=== PATIENT | female | born 1930 | race Caucasian/White ===

== ENCOUNTER 2016-03-15 10:39 | Inpatient (IN) ==
[2016-03-15] MEDS ORDERED: Naloxone 0.4 MG/ML INJ IVP PRN (13:25)
--- NOTE | 2016-03-15 14:15 | Internal Med History&Physical ---
<Madyson Joiner - Last Filed: 03/15/16 15:39> Date of Encounter: 03/15/16 Time of Encounter: 12:30 Assessment and Plan (1) Atrial fibrillation with RVR Current visit: Yes Status: Acute 1 patient presented with A. fib RVR heart rate 130s she does have history of paroxysmal atrial fibrillation and is on Xarelto as well as digoxin verapamil and metoprolol at home. Continuous cardiac monitoring Presently rate is 90-120- 2 patient has a listed allergy of Cardizem when questioned family states that her blood pressure drops were unsure of allergy. Will give patient IV metoprolol-will continue with verapamil will hold digoxin for now 3 we will continue with Xarelto 4 we will consult cardiology (2) Elevated troponin Current visit: Yes Status: Acute 1 patient's troponin on presentation was 0.06 with no chest pain suspect this is demand ischemia we will continue to cycle cardiac troponins 2 consult cardiology (3) Acute kidney injury superimposed on chronic kidney disease Current visit: Yes Status: Acute 1 has CKD stage III- as an creatinine is 1.63 appears baseline is around 1-1.2- suspect this is related to worsening CHF will continue to monitor creatinine 2 IV Lasix 3 monitoring of intake output daily weights 4 avoid nephrotoxins no NSAIDs (4) DM type 2 (diabetes mellitus, type 2) Current visit: No Status: Acute 1 patient is on insulin at home we will continue with basal as well as nutritional and sliding scale will monitor blood sugars before meals at bedtime maintain postprandial less than 180 Qualifiers: Diabetes mellitus complication status: with neurologic complications Diabetes mellitus complication detail: with unspecified neuropathy Diabetes mellitus intermodal dispatcher insulin use: with correction use Qualified Code(s): E11.40 - Type 2 diabetes mellitus with diabetic neuropathy, unspecified; Z79.4 - half-way (current) use of insulin (5) COPD (chronic obstructive pulmonary disease) Current visit: No Status: Chronic 1 present COPD stable no wheezing noted we will continue with oxygen maintain SPO2 greater than 92% bronchodilators as needed Qualifiers: COPD type: unspecified COPD Qualified Code(s): J44.9 - Chronic obstructive pulmonary disease, unspecified (6) Diastolic heart failure Current visit: No Status: Chronic 1 patient experiencing increasing weakness BMP was elevated chest x-ray indicative of heart failure-we will give IV Lasix 2 place on low sodium diet 3 monitor intake and output daily weights 4 maintain heart rate less than 90/maintain systolic less than 140-continue with beta fabiola and verapamil Qualifiers: Heart failure chronicity: acute on chronic Qualified Code(s): I50.33 - Acute on chronic diastolic (congestive) heart failure (7) Hypertension Current visit: No Status: Chronic 1 patient presented with elevated blood pressure systolic over 200 diastolic 100. We will continue with Lasix metoprolol and verapamil goal is to maintain systolic less than 140 Qualifiers: Hypertension type: essential hypertension Qualified Code(s): I10 - Essential (primary) hypertension Internal Medicine - H&P: HPI Chief complaint: Weakness/fall Admitted From: Hospital to Hospital Transfer Plans for Post Hospital Care: Home History of present illness: Ms. Méndez is a 86 year old female past medical history of paroxysmal atrial fibrillation diastolic heart failure COPD oxygen dependent hypertension diabetes. Patient lives alone normally takes care of herself ambulating with a walker however over the past week she has experiencing increasing weakness unable to ambulate using a wheelchair as requiring family members to stay with her and help her with medications and ADLs. Family members have noticed medications that have been dropped on the floor patient attempting to inject insulin into her house coat, and requiring more assistance with transfers. This a.m. the patient got up to use the bathroom and she fell from standing. She denies any dizziness chest pain palpitations or loss of consciousness. She did complain of lower back pain She was brought to the [place] ER for evaluation. Upon arrival was noted patient was in A. fib RVR with a heart rate of 1:30. Chest x-ray was indicative of congestive heart failure BNP was elevated at 1027 troponin was 0.06 patient did have elevated blood pressure on presentation to 201/125. CT of lumbar and pelvis were negative for fracture patient was given Bumex in the ER and was transferred to [facility] for further workup and evaluation. Upon assessment patient denies any chest pain or shortness of breath at this time. She is presently in atrial fibrillation on the monitor with a rate between 90-120. Oxygen saturation 94-97% on [address] Perez did discuss code status with shasha who is at bedside. Family/patient requesting DNR CCA DNI-I reviewed and confirmed request I reviewed the case with Dr perez who agrees wit hplan Past Med Surg Social Fam HX - Past Medical History Medical history: arthritis, atrial fibrillation, CHF, COPD, CVA Psychiatric history: anxiety - Past Surgical History Surgical History: cataract, hysterectomy, orthopedic, other, other - Social History Smoking Status: Former smoker Smokeless Tobacco Status: No Alcohol use: none Drug use: none - Family History Mother Living Status: Hx Family Cardiac Disorders: Yes Father Living Status: Hx Family Cancer: Yes Brother Hx Family Cardiac Disorders: Yes (CAD, has PPM) Sister Hx Family Cardiac Disorders: Yes (CAD, has PPM) Daughter Living Status: Hx Family Cancer: Yes Internal Medicine - H&P: Meds B2/Vits A,C,E/Lut/Zeaxanth/Min [Icaps Tablet] 1 each PO HS 03/27/15 [History] Cholecalciferol (Vitamin D3) [Vitamin D3] 5,000 unit PO HS 03/27/15 [History] ClonazePAM [Klonopin] 0.5 mg PO HS 03/27/15 [History] Docusate [Colace] 100 mg PO HS 03/27/15 [History] Furosemide [Lasix] 80 mg PO QAM 03/27/15 [History] Insulin NPH Hum/Reg Insulin Hm [Novolin 70-30 100 Unit/ml Vial] 35 unit SQ BID 03/27/15 [History] Losartan [Cozaar] 50 mg PO HS 03/27/15 [History] [place]-3/Dha/Epa/Fish Oil [[place] 3 500 Softgel] 2 cap PO QAM 03/27/15 [History] Omeprazole [PriLOSEC] 40 mg PO QAM 03/27/15 [History] Potassium Chloride [K-Tab ER] 20 meq PO BID 03/27/15 [History] Albuterol Neb [Proventil Neb] 2.5 mg IH Q6H PRN 11/13/15 [History] Albuterol Sulfate [Proair Hfa] 2 puff IH Q4H PRN 11/13/15 [History] Denosumab [Prolia (For Outpatient Infusion)] 60 mg SQ [id number] 11/13/15 [History ] Rivaroxaban [Xarelto] 10 mg PO QAM 11/13/15 [History] Tiotropium [Spiriva] 18 mcg IH DAILY@0700 #30 inh 02/24/16 [Rx] Verapamil ER (24 HR) [Calan SR] 240 mg PO DAILY #30 tablet.er 02/24/16 [Rx] Budesonide/Formoterol 160/4.5 [Symbicort 160/4.5] 2 puff IH BID 03/15/16 [ History] Digoxin [Lanoxin] 0.125 mg PO DAILY 03/15/16 [History] Metoprolol [Lopressor] 100 mg PO BID 03/15/16 [History] Venlafaxine [Effexor] 75 mg PO DAILY 03/15/16 [History] Allergies aminophylline Allergy (Verified 03/15/16 14:43) Anaphylaxis bacitracin Allergy (Verified 03/15/16 14:43) Anaphylaxis Calcium Channel Blocking Agents-Dih Allergy (Verified 03/15/16 14:43) Anaphylaxis cephalexin Allergy (Verified 03/15/16 14:43) Anaphylaxis Cephalosporins Allergy (Verified 03/15/16 14:43) Anaphylaxis diltiazem Allergy (Verified 03/15/16 14:43) Anaphylaxis Erythromycin Base Allergy (Verified 03/15/16 14:43) Anaphylaxis Macrolide Antibiotics Allergy (Verified 03/15/16 14:43) Anaphylaxis menthol Allergy (Verified 03/15/16 14:43) Anaphylaxis meperidine Allergy (Verified 03/15/16 14:43) Anaphylaxis methyl salicylate Allergy (Verified 03/15/16 14:43) Anaphylaxis morphine Allergy (Verified 03/15/16 14:43) Anaphylaxis nifedipine Allergy (Verified 03/15/16 14:43) Anaphylaxis Penicillins Allergy (Verified 03/15/16 14:43) Anaphylaxis polymyxin B Allergy (Verified 03/15/16 14:43) Anaphylaxis simvastatin Allergy (Verified 03/15/16 14:43) Anaphylaxis Vrazeou-Fqo-Lid Reductase Inhibitor [HMG-Coa Reductase Inhibitors] Allergy ( Verified 03/15/16 14:43) Anaphylaxis Sulfa (Sulfonamide Antibiotics) Allergy (Verified 03/15/16 14:43) Anaphylaxis theophylline Allergy (Verified 03/15/16 14:43) Anaphylaxis Iodinated Contrast Media - Oral and [Iodinated Contrast Media - IV Dye] Adverse Reaction (Verified 03/15/16 14:43) Anaphylaxis All Systems PM: A 10-system review of systems was performed and is negative for pertinent findings except as documented above in the HPI. - Constitutional Constitutional: fatigue, falls, lethargy, weakness - Cardiovascular Cardiovascular ROS IM: edema - Respiratory Respiratory: dyspnea - Gastrointestinal Gastrointestinal: no abdominal pain, no diarrhea, no hematemesis, no hematochezia, no melena, no nausea, no vomiting - Genitourinary Genitourinary: no change in urinary stream, no dysuria, no flank pain, no hematuria - Musculoskeletal Musculoskeletal ROS IM: no numbness, no tingling - Neurological Neurological ROS: weakness - Constitutional Vitals: Temp Pulse Resp BP Pulse Ox 98.1 F 115 20 175/75 93 L 03/15/16 12:05 03/15/16 12:05 03/15/16 12:05 03/15/16 12:51 03/15/16 12:05 General appearance: Present: A&O X 3, obese - Head Head exam: Present: atraumatic, normocephalic - Respiratory Respiratory exam: Absent: accessory muscle use, rales, rhonchi, wheezes Additional comments: Crackles in bases bilaterally - Cardiovascular Cardiovascular exam: Present: irregular rhythm, +S1, +S2. Absent: diastolic murmur, gallop, rubs, systolic murmur - GI/Abdominal GI/Abdominal exam: Present: normal bowel sounds, soft, no peritoneal signs. Absent: distended, tenderness - Extremities Exam Extremities exam: Present: warm, radial pulses palpable and symetrical. Absent : calf tenderness, cyanotic, pedal edema - Neurological Exam Neurological exam: Present: CN II-XII intact, oriented X3, no focal deficits. Absent: pronater drift, facial droop, speech deficit - Skin Skin exam: Present: dry, intact Internal Med - H&P Results - Labs Labs: Labs as of 03/15/16 from [facility]- CBC- WBC 20 hemoglobin 11.5 hematocrit 37.8 platelets 258 Chem-7- sodium 139, potassium 3.9 chloride 101, bicarbonate 25 BUN 19, creatinine 1.63, glucose 177 Troponin 0.06 lactate 1 - EKG Data EKG comments: 03/15/16 15:28 EKG reviewed with due to atrial fibrillation with nonspecific ST changes. - Diagnostic Studies Chest x-ray Additional comments: Per radiology read findings compatible with congestive heart failure to include bilateral pleural effusion and likely associated bibasilar atelectasis. Pleural effusions and atelectasis appear improved on the right and worse on the left from prior exam 02/20/2016 <Deep Perez - Last Filed: 03/15/16 17:59> Date of Encounter: 03/15/16 Internal Medicine - H&P: HPI History of present illness: Ms. Méndez is a 86 year old female All Systems PM: A 10-system review of systems was performed and is negative for pertinent findings except as documented above in the HPI. - Constitutional Vitals: Temp Pulse Resp BP Pulse Ox 98.6 F 80 18 165/80 93 L 03/15/16 16:24 03/15/16 16:24 03/15/16 16:24 03/15/16 16:24 03/15/16 12:05 Internal Med - H&P Results - Labs Labs: Cardiac Enzymes 03/15/16 Range/Units 14:45 Troponin I 0.13 H* (0-0.03) ng/mL - Attending Attestation I examined this patient and my medical decision-making was reviewed with the DIAMOND EXPERT/PA/Advanced Practice Nurse/Resident Physician. I agree with the documented findings, disposition and treatment plan as described except to the extent set forth below. Patient was brought to the hospital status post fall with a history of 5 days of this slowly worsening generalized weakness. History is obtained from the patient's granddaughter at the bedside. She was initially brought to [facility] where she was found to be in A. fib with RVR. She was given Bumex and transferred to our hospital. Currently the patient reports mild back pain. On exam heart irregularly irregular S1 and S2 with no murmurs lungs with diminished breath sounds extremities with trace pitting edema EKG reveals atrial fibrillation with rapid ventricular response with diffuse ST depressions in V4 to V6 and leads 23 and aVF. Plan: Continue with IV Lasix. Hold diltiazem to 2 listed allergy. Continue with verapamil. Start IV metoprolol. Consult cardiology. I have had a long discussion regarding CODE STATUS and the patient herself as well as her granddaughter agree with the current status of DNR CCA and DNI.
[2016-03-15] MEDS ORDERED: D5% in Water 1,000 ML IV PRN (14:57)
[2016-03-15] MEDS ORDERED: Albuterol 2.5 MG/3 ML NEBULIZER IH PRN (14:57)
[2016-03-15] MEDS ORDERED: Dextrose Gel 15 GM PO PRN ×2 (14:57)
[2016-03-15] MEDS ORDERED: *HR* Dextrose 50 % in Water (Syg) 50 ML SYRINGE IVP PRN (14:57)
[2016-03-15 15:14] LABS: INR 1.2
[2016-03-15 15:16] LABS: Activated Partial Thrombo Time 25.5 Seconds (26.0-36.0)
[2016-03-15] MEDS: *HR* Metoprolol 5 MG/5 ML VIAL IVP SCH ×2 (16:31→17:11)
[2016-03-15] MEDS: *HR* Rivaroxaban 15 MG TABLET PO SCH (16:31)
[2016-03-15] MEDS: Insulin LISPRO 300 UNITS/3 ML VIAL SQ SCH ×3 (16:32→20:26)
[2016-03-15] MEDS: Furosemide 40 MG/4 ML VIAL IVP SCH ×2 (17:39→19:37)
[2016-03-15] MEDS ORDERED: *HR* Metoprolol 5 MG/5 ML VIAL IVP SCH (18:00)
[2016-03-15] MEDS: Insulin DETEMIR 100 UNIT/ML X5UNITS SQ SCH (20:26)
[2016-03-15] MEDS ORDERED: Furosemide 40 MG/4 ML VIAL IVP SCH (21:00)
[2016-03-15] MEDS ORDERED: Ondansetron 4 MG/2 ML VIAL IVP PRN (21:00)
[2016-03-15] MEDS ORDERED: traMADol 50 MG TABLET PO ONE (21:16)
[2016-03-16] MEDS: *HR* Metoprolol 5 MG/5 ML VIAL IVP SCH ×3 (00:58→12:03)
[2016-03-16 05:44] LABS: Mean Corpuscular Volume 83.2 fL (83.0-100.0)
[2016-03-16 05:45] LABS: Basophils # 0.1 K/mcL (0.0-0.2); Basophils % 0.4 %; Eosinophils # 0.1 K/mcL (0.0-0.6); Eosinophils % 0.2 %; Hematocrit 54.3 % (35.3-44.9); Hemoglobin 16.3 g/dL (11.5-15.4); Immature Granulocytes % 2.2 % (0-4); Lymphocytes # 3.5 K/mcL (0.6-4.6); Lymphocytes % 10.3 %; Mean Platelet Volume 12.5 fL (9.4-12.4); Monocytes # 1.7 K/mcL (0.0-1.3); Monocytes % 5.2 %; Nucleated Red Blood Cells 0.1 /100 WBC (0); Platelet Count 345 K/mcL (140-400); Red Blood Count 6.53 M/mcL (3.82-4.97); Red Cell Distribution Width 17.2 % (11.5-14.5); Segmented Neutrophils % 81.7 %
[2016-03-16 05:53] LABS: Neutrophils # 27.4 K/mcL (1.6-8.9)
[2016-03-16 05:58] LABS: Potassium 4.9 mEq/L (3.5-4.5)
[2016-03-16 06:20] LABS: Thyroid Stimulating Hormone 1.107 mcIU/mL (0.350-4.840)
[2016-03-16 06:27] LABS: Platelet Estimate Normal (Normal); Reactive Lymphocytes Present (Not Present)
[2016-03-16 06:28] LABS: Hypersegmented Neutrophils Present (Not Present); Large Platelets Present (Not Present)
[2016-03-16] MEDS: Furosemide 40 MG/4 ML VIAL IVP SCH (08:19)
[2016-03-16] MEDS: Insulin LISPRO 300 UNITS/3 ML VIAL SQ SCH ×7 (08:20→22:22)
[2016-03-16] MEDS ORDERED: Verapamil ER (24 HR) 240 MG TABLET.ER PO SCH ×2 (09:00→15:06)
--- NOTE | 2016-03-16 09:36 | Cardiology Consult Note ---
<Marianela Hicks Paloma - Last Filed: 03/16/16 10:31> Date of Encounter: 03/16/16 Time of Encounter: 09:00 Assessment and Plan (1) Atrial fibrillation with RVR Current Visit: Yes Status: Acute Hx of PAF, previously on cardizem and betablocker as outpatient; anticoagulated on Xarelto. Questionable allergy to Cardizem, however per outpatient Cardio note, she was taking. Telemetry review: avg XC=782 afib; HR 120's-140's upon exam. Recommend initiation of cardizem gtt for rate control; suspect difficulty controlling rate in the setting of acute infection--WBC 33.5 Appears volume overload upon exam, will give IV lasix now. On Xarelto--renal adjusted dose; may need to discuss long-term AC due to falls. (2) Elevated troponin Current Visit: Yes Status: Acute Mild troponin elevation 0.06, 0.13, 0.12 in the setting of suspected PNA and atrial fibrillation with RVR; likely secondary to demand ischemia. Severe HTN upon admission, SBP remains >170s upon exam. (3) JAZZMINE (acute kidney injury) Current Visit: Yes Status: Acute SCr 2.2 this AM; 1.63 upon presentation to [facility] ED. Baseline SCr 1-1.1. Avoid nephrotoxins, consider Nephrology consult if renal function continues to decline; defer further mgmt to primary service. Discussion w patient/family: The assessment and plan as outlined above was discussed with the patient and/or family members who expressed understanding and agreement. All questions were answered. Thank you for involving us in the care of your patient. Please call with any questions. The patient will be discussed and reviewed with Dr. Mendes; changes to be made accordingly. History of Present Illness Consult date: 03/16/16 Requesting physician: Madyson Joiner Consult reason: afib RVR Chief complaint: AMS, confusion History of present illness: Ms. Méndez is a 86 year old female with PMH significant for PAF (Xarelto), CVA x2, DMII, HLD, HTN, and COPD (home oxygen) who presented to the ED overnight with reported hypoxia and increased confusion per family report. Upon exam, patient is unable to provide details regarding HPI--discussed with daughter at beside. Daughter reports patient has "not been herself" over the past week, reports episodes of confusion, chills and worsening cough. Symptoms escalated on Wednesday, patient fell at home and SPO2 was in the 70's despite utilization of home oxygen therapy. She was taken to [facility] ED and transferred to [facility] for further treatment. Daughter reports recent transition of care to Hospice close to a week ago. Seen by Optimization Consultant last Wednesday who recommended thoracentesis; however patient declined. Recent CV testing includes: TTE 03/28/15: EF 65%, mild concentric LVH, severe LVDD, severely dilated left atrium, mild MR, moderate PH. Past Med Surg Social Fam HX - Past Medical History Medical history: arthritis, atrial fibrillation, CHF (chronic, diastolic), COPD , CVA Psychiatric history: anxiety - Past Surgical History Surgical History: cataract, hysterectomy, orthopedic, other - Social History Smoking Status: Former smoker Smokeless Tobacco Status: No Alcohol use: none Drug use: none - Family History Mother Living Status: Hx Family Cardiac Disorders: Yes Father Living Status: Hx Family Cancer: Yes Brother Hx Family Cardiac Disorders: Yes (CAD, has PPM) Sister Hx Family Cardiac Disorders: Yes (CAD, has PPM) Daughter Living Status: Hx Family Cancer: Yes Medications and Allergies B2/Vits A,C,E/Lut/Zeaxanth/Min [Icaps Tablet] 1 each PO HS 03/27/15 [History] Cholecalciferol (Vitamin D3) [Vitamin D3] 5,000 unit PO HS 03/27/15 [History] ClonazePAM [Klonopin] 0.5 mg PO HS 03/27/15 [History] Docusate [Colace] 100 mg PO HS 03/27/15 [History] Furosemide [Lasix] 80 mg PO QAM 03/27/15 [History] Insulin NPH Hum/Reg Insulin Hm [Novolin 70-30 100 Unit/ml Vial] 35 unit SQ BID 03/27/15 [History] Losartan [Cozaar] 50 mg PO HS 03/27/15 [History] [place]-3/Dha/Epa/Fish Oil [[place] 3 500 Softgel] 2 cap PO QAM 03/27/15 [History] Omeprazole [PriLOSEC] 40 mg PO QAM 03/27/15 [History] Potassium Chloride [K-Tab ER] 20 meq PO BID 03/27/15 [History] Albuterol Neb [Proventil Neb] 2.5 mg IH Q6H PRN 11/13/15 [History] Albuterol Sulfate [Proair Hfa] 2 puff IH Q4H PRN 11/13/15 [History] Denosumab [Prolia (For Outpatient Infusion)] 60 mg SQ [id number] 11/13/15 [History ] Rivaroxaban [Xarelto] 10 mg PO QAM 11/13/15 [History] Tiotropium [Spiriva] 18 mcg IH DAILY@0700 #30 inh 02/24/16 [Rx] Verapamil ER (24 HR) [Calan SR] 240 mg PO DAILY #30 tablet.er 02/24/16 [Rx] Budesonide/Formoterol 160/4.5 [Symbicort 160/4.5] 2 puff IH BID 03/15/16 [ History] Digoxin [Lanoxin] 0.125 mg PO DAILY 03/15/16 [History] Metoprolol [Lopressor] 100 mg PO BID 03/15/16 [History] Venlafaxine [Effexor] 75 mg PO DAILY 03/15/16 [History] Allergies aminophylline Allergy (Verified 03/15/16 14:43) Anaphylaxis bacitracin Allergy (Verified 03/15/16 14:43) Anaphylaxis Calcium Channel Blocking Agents-Dih Allergy (Verified 03/15/16 14:43) Anaphylaxis cephalexin Allergy (Verified 03/15/16 14:43) Anaphylaxis Cephalosporins Allergy (Verified 03/15/16 14:43) Anaphylaxis diltiazem Allergy (Verified 03/15/16 14:43) Anaphylaxis Erythromycin Base Allergy (Verified 03/15/16 14:43) Anaphylaxis Macrolide Antibiotics Allergy (Verified 03/15/16 14:43) Anaphylaxis menthol Allergy (Verified 03/15/16 14:43) Anaphylaxis meperidine Allergy (Verified 03/15/16 14:43) Anaphylaxis methyl salicylate Allergy (Verified 03/15/16 14:43) Anaphylaxis morphine Allergy (Verified 03/15/16 14:43) Anaphylaxis nifedipine Allergy (Verified 03/15/16 14:43) Anaphylaxis Penicillins Allergy (Verified 03/15/16 14:43) Anaphylaxis polymyxin B Allergy (Verified 03/15/16 14:43) Anaphylaxis simvastatin Allergy (Verified 03/15/16 14:43) Anaphylaxis Ginubig-Fjb-Syq Reductase Inhibitor [HMG-Coa Reductase Inhibitors] Allergy ( Verified 03/15/16 14:43) Anaphylaxis Sulfa (Sulfonamide Antibiotics) Allergy (Verified 03/15/16 14:43) Anaphylaxis theophylline Allergy (Verified 03/15/16 14:43) Anaphylaxis Iodinated Contrast Media - Oral and [Iodinated Contrast Media - IV Dye] Adverse Reaction (Verified 03/15/16 14:43) Anaphylaxis All Systems Review: A 10-system review of systems was performed and is negative for pertinent findings except as documented above in the HPI. - Cardiovascular Cardiovascular: as per HPI Physical Examination Vital Signs, Last 4 Hours Temp Pulse Resp BP Pulse Ox 03/16/16 07:42 97.9 F 03/16/16 07:18 97.8 F 130 16 168/84 94 L General: Conversant HEENT: Atraumatic, Normocephaly Cardiac: Other (irregularity irregular) Lungs: Other (Decreased bibasilar) Neuro: Alert and responsive (to self, location) Abdomen: Soft (tender x4 quadrants) Extremities: No Edema, Other (Toes purple/blue; bilateral feet cool to touch) Results 03/16/16 05:11 03/16/16 05:11 Lab Results 03/15/16 03/15/16 03/15/16 14:45 14:45 20:32 WBC Hgb Hct Plt Count INR 1.2 APTT 25.5 L Sodium Potassium Chloride Carbon Dioxide BUN Creatinine Glucose Calcium Troponin I 0.13 H* 0.12 H* TSH 03/16/16 03/16/16 05:11 05:11 WBC 33.5 H* D Hgb 16.3 H D Hct 54.3 H Plt Count 345 INR APTT Sodium 134 L Potassium 4.9 H D Chloride 102 Carbon Dioxide 16 L BUN 33 H D Creatinine 2.22 H Glucose 310 H Calcium 10.0 Troponin I TSH 1.107 Active Medications Acetaminophen (Tylenol) 650 mg PO Q6HR PRN PRN Reason: Pain Stop: 09/14/16 21:00 Albuterol Sulfate (Proventil Neb) 2.5 mg IH Q2H PRN PRN Reason: Shortness Of Breath/Wheezing Stop: 09/14/16 14:58 Dextrose/Water (Dextrose 50% (Syg)) 25 ml IVP AD PRN PRN Reason: Hypoglycemia Stop: 09/14/16 14:58 Dextrose (Dextrose 5%) 1,000 mls @ 100 mls/hr IV CONT PRN PRN Reason: HYPOGLYCEMIA Stop: 09/14/16 14:58 Meropenem 500 mg/ Sodium (Chloride) 100 mls @ 200 mls/hr IVPB Q8HR JENNIFER Stop: 09/15/16 16:01 Vancomycin HCl 1,000 mg/ (Dextrose) 250 mls @ 167 mls/hr IVPB RPHPROT JENNIFER PRN Reason: Protocol Stop: 09/15/16 10:01 Diltiazem HCl 125 mg/ Dextrose 125 mls @ 5 mls/hr IVC .Q24H JENNIFER PRN Reason: 5 MG/HR Stop: 09/15/16 09:46 Insulin Detemir (Levemir) 10 unit 0.15 unit/kg (10 unit) SQ HS [facility] Stop: 09/14/16 21:01 Last Admin: 03/15/16 20:26 Dose: 10 unit Insulin Human Lispro (Humalog) 4 units 0.05 units/kg (4 units) SQ TIDWM [facility] Stop: 09/14/16 17:01 Last Admin: 03/16/16 08:20 Dose: 4 units Insulin Human Lispro (Humalog) 0 units SQ HS JENNIFER PRN Reason: Protocol Stop: 09/14/16 21:01 Last Admin: 03/15/16 20:26 Dose: Not Given Insulin Human Lispro (Humalog) 0 units SQ TIDAC [facility] PRN Reason: Protocol Stop: 09/14/16 16:31 Last Admin: 03/16/16 08:21 Dose: 8 units Metoprolol Tartrate (Lopressor) 5 mg IVP Q6HR [facility] Stop: 09/14/16 14:52 Last Admin: 03/16/16 05:28 Dose: 5 mg Naloxone HCl (Narcan) 0.4 mg IVP Q2MIN PRN PRN Reason: Opioid Reversal Stop: 09/14/16 13:26 Ondansetron HCl (Zofran) 4 mg IVP Q6HR PRN; Protocol PRN Reason: Nausea Stop: 09/14/16 21:01 Last Admin: 03/15/16 21:52 Dose: 4 mg Rivaroxaban (Xarelto) 15 mg PO 1700 [facility] Stop: 09/14/16 17:01 Last Admin: 03/15/16 16:31 Dose: 15 mg Venlafaxine HCl (Effexor) 75 mg PO DAILY [facility]ENN[facility] Stop: 09/15/16 09:01 Last Admin: 03/16/16 08:18 Dose: 75 mg Verapamil HCl (Calan Sr) 240 mg PO DAILY [facility]ENN[facility]ER PRN Reason: Protocol Stop: 09/15/16 15:07 Impressions Chest X-Ray 03/16/16 06:14 IMPRESSION: Persistent bilateral interstitial infiltrates with small pleural effusions right greater than left questioning pulmonary edema versus pneumonia. D/ / 03/16/2016 06:59:41 Puneet Guajardo MD / [facility] - Imaging and Cardiology Echo: report reviewed Other Results: Telemetry review: avg [id number] atrial fibrillation - EKG Interpretation EKG results cardiology: personally reviewed Consult Discharge Plan - Plan Referrals: Kael Chanel DO [Primary Care Provider] - <Julio César Mendes - Last Filed: 03/16/16 11:38> Date of Encounter: 03/16/16 Assessment and Plan Discussion w patient/family: The assessment and plan as outlined above was discussed with the patient and/or family members who expressed understanding and agreement. All questions were answered. Thank you for involving us in the care of your patient. Please call with any questions. History of Present Illness History of present illness: Ms. Méndez is a 86 year old female All Systems Review: A 10-system review of systems was performed and is negative for pertinent findings except as documented above in the HPI. Physical Examination Vital Signs, Last 4 Hours Temp BP 03/16/16 11:00 184/76 03/16/16 07:42 97.9 F Results 03/16/16 05:11 03/16/16 05:11 Lab Results 03/15/16 03/15/16 03/15/16 14:45 14:45 20:32 WBC Hgb Hct Plt Count INR 1.2 APTT 25.5 L Sodium Potassium Chloride Carbon Dioxide BUN Creatinine Glucose Calcium Troponin I 0.13 H* 0.12 H* TSH 03/16/16 03/16/16 05:11 05:11 WBC 33.5 H* D Hgb 16.3 H D Hct 54.3 H Plt Count 345 INR APTT Sodium 134 L Potassium 4.9 H D Chloride 102 Carbon Dioxide 16 L BUN 33 H D Creatinine 2.22 H Glucose 310 H Calcium 10.0 Troponin I TSH 1.107 - Attending Attestation Patient Seen and examined less sob Toes appear to be cyanotic no cp , pnd vital signs stable lungs; occ crackles heart : irregular plan: a/w plan from PRODUCTION PLANNER will try and control HR consider in patient Hospice consult consider Palliative care consult For this encounter, I have reviewed the PRODUCTION PLANNER or PA documentation, treatment plan, and medical decision making; and I have had face to face time with this patient.
[2016-03-16] MEDS ORDERED: Vancomycin 1,000 MG in D5% in Water 250 ML IVPB SCH (10:00)
[2016-03-16] MEDS: Meropenem 500 MG in 0.9 % Sodium Chloride Mini Bag 100 ML IVPB SCH ×2 (10:33→22:20)
[2016-03-16] MEDS: Vancomycin 1,000 MG in D5% in Water 250 ML IVPB ONE ×2 (10:35→12:06)
[2016-03-16 12:51] LABS: BUN/Creatinine Ratio 15 (6-26); Blood Urea Nitrogen 44 mg/dL (7-20); eGFR For African Americans 19 (> 60); eGFR For Non-African Americans 16 (> 60)
[2016-03-16 13:35] LABS: Digoxin 2.2 ng/mL (0.8-2.0)
[2016-03-16] MEDS ORDERED: cloNIDine HCl 0.1 MG TABLET PO ONE (15:14)
[2016-03-16] MEDS: *HR* Rivaroxaban 15 MG TABLET PO SCH (16:29)
--- NOTE | 2016-03-16 16:40 | Internal Med Progress Note ---
<Roberto Schultz - Last Filed: 03/16/16 16:54> Date of Encounter: 03/16/16 Time of Encounter: 16:38 - Assessment and plan (1) Sepsis Current Visit: Yes Status: Acute Assessment and plan: SIRS criteria met with Leukocytosis ( with neutrophilia) and tachycardia. Possible sources would include HCAP pneumonia and possible intraabdominal source. Intraabdominal source less likely given CT findings. Severe sepsis given lactic acidosis and organ dysfunction (JAZZMINE) Currently hemodynamically stable. She is actually hypertensive. Blood cultures ordered. started on vancomycin and Meropenem ( patient with multiple allergies). She dose appear clinically ill. and has multiple comorbidities. We will need to watch her carefully as she could clinically decline. Will follow up with serial exams through the day and sign out to the night team as well. (2) Atrial fibrillation with RVR Current Visit: Yes Status: Acute Assessment and plan: will start on cardizem gtt. Patient has many allergies. they were all entered as an anyphyllactic reaction. However patient previously on cardizemand family states it was listed as allergy as she had an episode of hypertension with it in the past. Cardiology consulted. She is on Xarelto ( may need to be adjusted if renal function dose not improve. (3) Elevated troponin Current Visit: Yes Status: Acute Assessment and plan: weston barron. In the setting of JAZZMINE. Trending down Appreciate Cardiologies recommendation. (4) Leukocytosis Current Visit: Yes Status: Acute Assessment and plan: Likely from infection. Possibly pneumonia. However chronically elevated. CLL? or other blood disorder? Will get a peripheral smear. (5) Raynauds disease Current Visit: Yes Status: Acute Assessment and plan: Pants toes were blue on exam. Improved some with warming. However pulses difficult to palpate. mildly elevated lactic acid. May also consider blue toe syndrome as she appears to have significant atherosclerosis. However I think that most likely this is raynauds given the improvement with warmth. Will get arterial US to evaluate flow. continue with serial exams. (6) COPD (chronic obstructive pulmonary disease) Current Visit: Yes Status: Acute Assessment and plan: currently not in exacerbation Continue home medications. On home dose of O2 -3L NC (7) Lung nodule Current Visit: Yes Status: Acute Assessment and plan: spiculated 1.1 CM lung nodule in RLL. However patient reportedly refused biopsy and thoracentesis per families account. (8) Pleural effusion Current Visit: Yes Status: Acute Assessment and plan: as stated above. will offer thoracentesis again should she become more symptomatic. (9) Pelvic fluid collection Current Visit: Yes Status: Acute Assessment and plan: Etiology unclear at this time. No peritoneal signs on exam. No acute findings on CT of the pelvis. continue serial exams. (10) Atherosclerosis Current Visit: Yes Status: Acute Assessment and plan: add aspirine. she has history of Statin allergy . (11) DVT prophylaxis Current Visit: Yes Status: Acute Assessment and plan: on Xarelto - Subjective Interval history: Patient this AM has some confusions. She states that it is 1969. She is orientated to person and self. She denies any pain or discomfort. She denies any chest pain or discomfort. She denies any increased dyspnea from baseline. She has no further complaints at this time. - Constitutional Vitals: Temp Pulse Resp BP Pulse Ox 98.7 F 115 14 180/86 97 03/16/16 15:19 03/16/16 15:19 03/16/16 15:19 03/16/16 15:19 03/16/16 15:19 General appearance: Present: A&O X 2, no acute distress, obese - Head Head exam: Present: atraumatic, normocephalic - Eye Eye exam: Present: PERRL, conjuntiva pink, sclera anicteric Pupils: Present: PERRL - Neck Neck exam general surgery: Present: supple, trachea midline. Absent: lymphadenopathy - Respiratory Respiratory exam: Present: CTAB. Absent: accessory muscle use, rales, rhonchi, wheezes Additional comments: diminished at bases. - Cardiovascular Cardiovascular exam: Present: irregular rhythm, +S1, +S2, tachycardia. Absent: diastolic murmur, gallop, rubs, systolic murmur - GI/Abdominal GI/Abdominal exam: Present: normal bowel sounds, soft, tenderness (LLQ ), no peritoneal signs. Absent: distended - Extremities Exam Extremities exam: Present: cyanotic (toes/ raynauds). Absent: calf tenderness, mottling, pedal edema - Skin Skin exam: Present: dry, intact Internal Medicine: Result - Labs CBC & Chem 7: 03/16/16 05:11 03/16/16 12:31 Labs: Short CBC 03/16/16 Range/Units 05:11 WBC 33.5 H* D (4.3-11.1) K/mcL Hgb 16.3 H D (11.5-15.4) g/dL Hct 54.3 H (35.3-44.9) % Plt Count 345 (140-400) K/mcL Neutrophils # 27.4 H (1.6-8.9) K/mcL BMP 03/16/16 03/16/16 05:11 12:31 Sodium 134 L Potassium 4.9 H D Chloride 102 Carbon Dioxide 16 L BUN 33 H D 44 H D Creatinine 2.22 H 2.87 H Glucose 310 H Calcium 10.0 Cardiac Enzymes 03/15/16 Range/Units 20:32 Troponin I 0.12 H* (0-0.03) ng/mL - ABG Interpretation ABG results: PT/INR, D-dimer PT 13.0 Seconds (9.4-12.1) H 03/15/16 14:45 - Impressions Impressions Chest X-Ray 03/16/16 06:14 IMPRESSION: Persistent bilateral interstitial infiltrates with small pleural effusions right greater than left questioning pulmonary edema versus pneumonia. D/ / 03/16/2016 06:59:41 Puneet Guajardo MD / codey Interpreting Provider: Puneet Guajardo MD Abdomen/Pelvis CT 03/16/16 10:16 IMPRESSION: 1. Wall thickening of the gastric antrum may reflect gastritis or peptic ulcer disease. 2. Small volume ascites in the abdomen and pelvis. 3. No abdominal aortic aneurysm. D/ / 03/16/2016 11:27:05 Dori Ma MD / codey Interpreting Provider: Dori Ma MD - VTE Documentation of Mechanical Device: Graduated compression elastic hosiery Consult Discharge Plan - Plan Referrals: Kael Chanel DO [Primary Care Provider] - 03/23/16 11:30 am <Sergey Xiao - Last Filed: 03/16/16 19:01> Date of Encounter: 03/16/16 - Assessment and plan (1) Sepsis Current Visit: Yes Status: Acute Qualifiers: Sepsis type: sepsis due to unspecified organism Qualified Code(s): A41.9 - Sepsis, unspecified organism (2) Acute metabolic encephalopathy Current Visit: Yes Status: Acute (3) Atrial fibrillation Current Visit: No Status: Chronic Qualifiers: Atrial fibrillation type: persistent Qualified Code(s): I48.1 - Persistent atrial fibrillation (4) Raynauds disease Current Visit: Yes Status: Acute Qualifiers: Raynaud?s-associated gangrene presence: without gangrene Qualified Code(s) : I73.00 - Raynaud's syndrome without gangrene (5) JAZZMINE (acute kidney injury) Current Visit: Yes Status: Acute (6) DM type 2 (diabetes mellitus, type 2) Current Visit: No Status: Acute Qualifiers: Diabetes mellitus complication status: with neurologic complications Diabetes mellitus complication detail: with unspecified neuropathy Diabetes mellitus senior living insulin use: with senior living use Qualified Code(s): E11.40 - Type 2 diabetes mellitus with diabetic neuropathy, unspecified; Z79.4 - MCFP (current) use of insulin - Constitutional Vitals: Temp Pulse Resp BP Pulse Ox 98.7 F 115 14 180/86 97 03/16/16 15:19 03/16/16 15:19 03/16/16 15:19 03/16/16 15:19 03/16/16 15:19 Internal Medicine: Result - Labs CBC & Chem 7: 03/16/16 05:11 03/16/16 12:31 Labs: Short CBC 03/16/16 Range/Units 05:11 WBC 33.5 H* D (4.3-11.1) K/mcL Hgb 16.3 H D (11.5-15.4) g/dL Hct 54.3 H (35.3-44.9) % Plt Count 345 (140-400) K/mcL Neutrophils # 27.4 H (1.6-8.9) K/mcL BMP 03/16/16 03/16/16 05:11 12:31 Sodium 134 L Potassium 4.9 H D Chloride 102 Carbon Dioxide 16 L BUN 33 H D 44 H D Creatinine 2.22 H 2.87 H Glucose 310 H Calcium 10.0 Cardiac Enzymes 03/15/16 Range/Units 20:32 Troponin I 0.12 H* (0-0.03) ng/mL - ABG Interpretation ABG results: PT/INR, D-dimer PT 13.0 Seconds (9.4-12.1) H 03/15/16 14:45 - Impressions Impressions Chest X-Ray 03/16/16 06:14 IMPRESSION: Persistent bilateral interstitial infiltrates with small pleural effusions right greater than left questioning pulmonary edema versus pneumonia. D/ / 03/16/2016 06:59:41 Puneet Guajardo MD / codey Interpreting Provider: Puneet Guajardo MD Abdomen/Pelvis CT 03/16/16 10:16 IMPRESSION: 1. Wall thickening of the gastric antrum may reflect gastritis or peptic ulcer disease. 2. Small volume ascites in the abdomen and pelvis. 3. No abdominal aortic aneurysm. D/ / 03/16/2016 11:27:05 Dori Ma MD / codey Interpreting Provider: Dori Ma MD - Attending Attestation I examined this patient and my medical decision-making was reviewed with the Resident Physician on 03/16/16. I agree with the documented findings, disposition and treatment plan as described except to the extent set forth below. Ms. Méndez is currently admitted for acute mental status change, HTN, rapid a fib and severe sepsis. She is high risk due to persistent tachycardia, HTN and continued encephalopathy. Ms. Méndez is somnolent and confused. Her BP and heartrate are still very elevated. Abd was tender earlier. Feet and hands cold but warmer with blankets. Family at bedside. There is a question of Hospice and palliative care consulted. Exam Alert. Moderate distress Heart rapid and irregular Lungs diminished Abd soft - ? tender Feet cold and blusih (pulses felt) Hands cool I/P 1. A fib with RVR 2. HTN 3. Severe sepsis - ? pna 4. Encephalopathy Further diagnosis and plan as above.
--- NOTE | 2016-03-16 17:33 | Palliative - Consult Note ---
Date of Encounter: 03/17/16 Time of Encounter: 15:30 - Assessment and Plan (1) Goals of care, counseling/discussion Current Visit: Yes Status: Acute Assessment and plan: Ms. Méndez was unable to participate in the conversation due to her altered mental status. Discuss goals of care with the patient's daughter-Clari, and son Roberto, as well as additional family members in the room. They continue to support the patient's previously known wishes to be a DNR comfort care arrest/ DO NOT INTUBATE. The family is unclear regarding her hospice enrollment, and expectations. They would like to continue with treatment and further testing as necessary. nutrition services aide is following for discharge planning needs as patient will likely need some sort of inpatient rehabilitation upon discharge. The palliative care team will continue to follow and assist with goals of care. Discussed case with hospitalist. (2) Atrial fibrillation with RVR Current Visit: Yes Status: Acute Assessment and plan: Cardiology following. Palliative-CN HPI - Data of Consult Patient: new to practice Consult date: 03/16/16 Requesting Physician: Sergey Xiao DO Primary Care Provider: Kael Chanel DO - Consult Narrative Palliative Care/Comfort Measures: Palliative care Reason for consult: Goals of care History of present illness: Ms. Méndez is a 86 year old female presenting to [place] with complaints of increasing weakness and fall. Initial evaluation revealed an elevated BNP and chest x-ray suggestive for congestive heart failure. The patient was in atrial fibrillation with rapid ventricular rate. She was transitioned to [facility] for further workup and evaluation. Cardiology was consulted to assist in management of the atrial fibrillation and heart failure. She was also found to have a significantly elevated white blood cell count upon transfer. The palliative care team was consulted to assist with goals of care planning. Her family reports an increasing her weakness over the past 3 days. Her son, Roberto Méndez, stays with her at night and reports a very poor appetite over the past 3 days as well. Her mental status has been her normal up until yesterday. Ms. Méndez typically is able to assist in her own care and ambulates with just the assistance of a walker. She was recently enrolled in hospice due to her heart failure and comorbidities. Her family is unclear on the hospice philosophy and treatment expectations. CC: Sergey Xiao DO Past Med Surg Social Fam HX - Past Medical History Medical history: arthritis, atrial fibrillation, CHF (chronic, diastolic), COPD , CVA Psychiatric history: anxiety - Past Surgical History Surgical History: cataract, hysterectomy, orthopedic, other - Social History Smoking Status: Former smoker Smokeless Tobacco Status: No Alcohol use: none Drug use: none - Family History Mother Living Status: Hx Family Cardiac Disorders: Yes Father Living Status: Hx Family Cancer: Yes Brother Hx Family Cardiac Disorders: Yes (CAD, has PPM) Sister Hx Family Cardiac Disorders: Yes (CAD, has PPM) Daughter Living Status: Hx Family Cancer: Yes Medications and Allergies B2/Vits A,C,E/Lut/Zeaxanth/Min [Icaps Tablet] 1 each PO HS 03/27/15 [History] Cholecalciferol (Vitamin D3) [Vitamin D3] 5,000 unit PO HS 03/27/15 [History] ClonazePAM [Klonopin] 0.5 mg PO HS 03/27/15 [History] Docusate [Colace] 100 mg PO HS 03/27/15 [History] Furosemide [Lasix] 80 mg PO QAM 03/27/15 [History] Insulin NPH Hum/Reg Insulin Hm [Novolin 70-30 100 Unit/ml Vial] 35 unit SQ BID 03/27/15 [History] Losartan [Cozaar] 50 mg PO HS 03/27/15 [History] [place]-3/Dha/Epa/Fish Oil [[place] 3 500 Softgel] 2 cap PO QAM 03/27/15 [History] Omeprazole [PriLOSEC] 40 mg PO QAM 03/27/15 [History] Potassium Chloride [K-Tab ER] 20 meq PO BID 03/27/15 [History] Albuterol Neb [Proventil Neb] 2.5 mg IH Q6H PRN 11/13/15 [History] Albuterol Sulfate [Proair Hfa] 2 puff IH Q4H PRN 11/13/15 [History] Denosumab [Prolia (For Outpatient Infusion)] 60 mg SQ [id number] 11/13/15 [History ] Rivaroxaban [Xarelto] 10 mg PO QAM 11/13/15 [History] Tiotropium [Spiriva] 18 mcg IH DAILY@0700 #30 inh 02/24/16 [Rx] Verapamil ER (24 HR) [Calan SR] 240 mg PO DAILY #30 tablet.er 02/24/16 [Rx] Budesonide/Formoterol 160/4.5 [Symbicort 160/4.5] 2 puff IH BID 03/15/16 [ History] Digoxin [Lanoxin] 0.125 mg PO DAILY 03/15/16 [History] Metoprolol [Lopressor] 100 mg PO BID 03/15/16 [History] Venlafaxine [Effexor] 75 mg PO DAILY 03/15/16 [History] Allergies aminophylline Allergy (Verified 03/15/16 14:43) Anaphylaxis bacitracin Allergy (Verified 03/15/16 14:43) Anaphylaxis Calcium Channel Blocking Agents-Dih Allergy (Verified 03/15/16 14:43) Anaphylaxis cephalexin Allergy (Verified 03/15/16 14:43) Anaphylaxis Cephalosporins Allergy (Verified 03/15/16 14:43) Anaphylaxis Erythromycin Base Allergy (Verified 03/15/16 14:43) Anaphylaxis Macrolide Antibiotics Allergy (Verified 03/15/16 14:43) Anaphylaxis menthol Allergy (Verified 03/15/16 14:43) Anaphylaxis meperidine Allergy (Verified 03/15/16 14:43) Anaphylaxis methyl salicylate Allergy (Verified 03/15/16 14:43) Anaphylaxis morphine Allergy (Verified 03/15/16 14:43) Anaphylaxis nifedipine Allergy (Verified 03/15/16 14:43) Anaphylaxis Penicillins Allergy (Verified 03/15/16 14:43) Anaphylaxis polymyxin B Allergy (Verified 03/15/16 14:43) Anaphylaxis simvastatin Allergy (Verified 03/15/16 14:43) Anaphylaxis [id number] Reductase Inhibitor [HMG-Coa Reductase Inhibitors] Allergy ( Verified 03/15/16 14:43) Anaphylaxis Sulfa (Sulfonamide Antibiotics) Allergy (Verified 03/15/16 14:43) Anaphylaxis theophylline Allergy (Verified 03/15/16 14:43) Anaphylaxis diltiazem Adverse Reaction (Verified 03/16/16 15:25) low blood pressure Iodinated Contrast Media - Oral and [Iodinated Contrast Media - IV Dye] Adverse Reaction (Verified 03/15/16 14:43) Anaphylaxis ROS unobtainable: due to mental status Palliative Care-Exam - Constitutional Vitals: Temp Pulse Resp BP Pulse Ox 98.7 F 115 14 180/86 97 03/16/16 15:19 03/16/16 15:19 03/16/16 15:19 03/16/16 15:19 03/16/16 15:19 General appearance: Present: obese Exam: 86 year old female appearing chronically ill. She is arousable to verbal stimuli, but unable to hold conversation. Her family is at bedside and assists with history. - Head Head Exam: Present: atraumatic - Eye Eye exam: Present: EOMI - ENT ENT exam: Present: mucous membranes dry - Respiratory Respiratory exam: Present: rhonchi. Absent: accessory muscle use, respiratory distress - Expanded Respiratory Exam Location: rhonchi: Left, Right, Upper - Cardiovascular Cardiovascular exam: Present: irregular rhythm - GI/Abdominal Exam GI/Abdominal exam: Present: soft. Absent: guarding, tenderness - Catheter Type: Urethral ([place]) - Extremities Exam Extremities exam: Absent: normal inspection - Expanded Lower Extremities Exam Neuro vascular tendon exam: Present: extremity cold to touch (bilateral feet) - Neurological Exam Neurological exam: Present: alert, strengths equal and symetr throughout ( global weakness). Absent: oriented X3 (oriented to person ) - Psychiatric Psychiatric exam: Absent: agitated, anxious - Skin Skin exam: Present: dry, warm Additional comments: bilateral toes with discoloration, cold to touch. Internal Medicine - CN: Reslt - Labs CBC & Chem 7: 03/17/16 06:33 03/17/16 05:30 Labs: Short CBC 03/16/16 Range/Units 05:11 WBC 33.5 H* D (4.3-11.1) K/mcL Hgb 16.3 H D (11.5-15.4) g/dL Hct 54.3 H (35.3-44.9) % Plt Count 345 (140-400) K/mcL Neutrophils # 27.4 H (1.6-8.9) K/mcL BMP 03/16/16 03/16/16 05:11 12:31 Sodium 134 L Potassium 4.9 H D Chloride 102 Carbon Dioxide 16 L BUN 33 H D 44 H D Creatinine 2.22 H 2.87 H Glucose 310 H Calcium 10.0 Cardiac Enzymes 03/15/16 Range/Units 20:32 Troponin I 0.12 H* (0-0.03) ng/mL - ABG Interpretation ABG results: PT/INR, D-dimer PT 13.0 Seconds (9.4-12.1) H 03/15/16 14:45 - Impressions Impressions Chest X-Ray 03/16/16 06:14 IMPRESSION: Persistent bilateral interstitial infiltrates with small pleural effusions right greater than left questioning pulmonary edema versus pneumonia. D/ / 03/16/2016 06:59:41 Puneet Guajardo MD / codey Interpreting Provider: Puneet Guajardo MD Abdomen/Pelvis CT 03/16/16 10:16 IMPRESSION: 1. Wall thickening of the gastric antrum may reflect gastritis or peptic ulcer disease. 2. Small volume ascites in the abdomen and pelvis. 3. No abdominal aortic aneurysm. D/ / 03/16/2016 11:27:05 Dori Ma MD / codey Interpreting Provider: Dori Ma MD Consult Discharge Plan - Plan Referrals: Kael Chanel DO [Primary Care Provider] - 03/23/16 11:30 am Palliative Quality Palliative Quality: Screen for Code Status: Yes, Screen for Goals of Care: Yes, Screen for Pain: Yes, If Pain Regimen Started, Initiate Bowel Regimen: NA, Screen for Nausea/Vomitting: Yes Code Status: 03/15/16 13:25 Resuscitation Status: Active [RES] Routine Comment: Resuscitation Status: [id number]
[2016-03-16] MEDS: Metoprolol 100 MG TABLET PO SCH (20:07)
[2016-03-16] MEDS: Insulin DETEMIR 100 UNIT/ML X5UNITS SQ SCH (22:21)
[2016-03-16] MEDS: Acetaminophen 325 MG TABLET PO PRN (22:33)
[2016-03-17] MEDS: Acetaminophen 325 MG TABLET PO PRN (06:10)
[2016-03-17] MEDS: *HR* Metoprolol 5 MG/5 ML VIAL IVP PRN (06:10)
[2016-03-17 06:13] LABS: Potassium 4.3 mEq/L (3.5-4.5)
[2016-03-17 06:18] LABS: Bilirubin,Urine Negative (Negative); Blood,Urine Moderate (Negative); Clarity,Urine Clear (Clear); Color,Urine Yellow (Yellow); Glucose,Urine (UA) 100 mg/dL (Normal); Ketones,Urine Negative (Negative); Leukocyte Esterase,Urine Negative (Negative); Nitrite,Urine Negative (Negative); PH,Urine 5.5 pH Units (5.0-8.0); Protein,Urine 100 mg/dL (Neg-Trace); Specific Gravity,Urine 1.017 (1.010-1.025); Urobilinogen,Urine Normal (Normal)
[2016-03-17 06:19] LABS: Bacteria,Urine None Seen per hpf (None-Few); Hyaline Casts,Urine Few per lpf (None-Few); Squamous Epithelial Cell,Urine Many per lpf (None-Few)
[2016-03-17 06:51] LABS: Basophils # 0.1 K/mcL (0.0-0.2); Basophils % 0.2 %; Eosinophils % 0.1 %; Hematocrit 39.2 % (35.3-44.9); Immature Granulocytes % 1.5 % (0-4); Immature Platelets 15.3 % (1.1-6.1); Lymphocytes # 2.6 K/mcL (0.6-4.6); Lymphocytes % 7.6 %; Mean Corpuscular HGB Conc 30.6 g/dL (31.6-35.5); Mean Corpuscular Hemoglobin 24.7 pg (28.0-33.3); Mean Corpuscular Volume 80.8 fL (83.0-100.0); Mean Platelet Volume 12.5 fL (9.4-12.4); Monocytes # 3.3 K/mcL (0.0-1.3); Monocytes % 9.7 %; Neutrophils # 27.8 K/mcL (1.6-8.9); Nucleated Red Blood Cells 0.2 /100 WBC (0); Platelet Count 168 K/mcL (140-400); Red Blood Count 4.85 M/mcL (3.82-4.97); Red Cell Distribution Width 16.5 % (11.5-14.5); Segmented Neutrophils % 80.9 %
[2016-03-17 07:04] LABS: ABG Base Excess 3.1 mEq/L (-2.0 to 3.0); ABG Oxygen Saturation 94 % (95-98); ABG PCO2 38 mmHg (35-45); ABG PH 7.46 pH Units (7.32-7.45); ABG PO2 65 mmHg (85-104); ABG TCO2 28.2 mEq/L (20-26)
[2016-03-17 07:05] LABS: Blood Gas FiO2 32 %; Blood Gas Liter Flow 3 L/MIN
[2016-03-17] MEDS: Insulin LISPRO 300 UNITS/3 ML VIAL SQ SCH ×7 (08:19→21:01)
--- NOTE | 2016-03-17 08:43 | Cardiology Progress Note ---
Date of Encounter: 03/17/16 Time of Encounter: 08:30 Assessment and Plan (1) Atrial fibrillation with RVR Current Visit: Yes Status: Acute Hx of PAF, previously on cardizem and betablocker as outpatient; anticoagulated on Xarelto. Questionable allergy to Cardizem, however per outpatient Cardio note, she was taking. Telemetry review: avg HR=97 afib. HR 80's-100's upon exam, will start oral Cardizem 240 mg now, d/c gtt 2 hours after oral dose. Continue betablocker. Continue to titrate cardizem up if needed to improve HR control and if BP will tolerate. PRN IV Lopressor ordered On Xarelto as outpatient--renal adjusted dose; renal function continues to decline. Recommend stopping Xarelto; discussed with patient/daughter at bedside. Enrolled in hospice as outpatient, frequent falls, and overall poor prognosis; if patient/family desires to continue full anticoagulation, recommend Coumadin therapy. Patient is hesitant to start Coumadin at this point. Recommend asa [address] Mendes who agrees with plan. (2) Elevated troponin Current Visit: Yes Status: Acute Mild troponin elevation 0.06, 0.13, 0.12 in the setting of suspected PNA and atrial fibrillation with RVR; likely secondary to demand ischemia. She is chest pain free upon exam. Severe HTN upon admission. (3) JAZZMINE (acute kidney injury) Current Visit: Yes Status: Acute Kidney function continues to worsen. Xarelto stopped. Baseline SCr 1-1.1. Avoid nephrotoxins, consider Nephrology consult if renal function continues to decline; defer further mgmt to primary service. Discussion w patient/family: The assessment and plan as outlined above was discussed with the patient and/or family members who expressed understanding and agreement. All questions were answered. Thank you for involving us in the care of your patient. Please call with any questions. The patient will be discussed and reviewed with Dr. Mendes; changes to be made accordingly. Subjective Principal diagnosis: Afib, Respiratory distress, AMS Interval history: Seen and examined. More alert this AM--daughter states patient did not sleep well overnight. She denies any complaints this AM. Objective Vital Signs, Last 4 Hours Temp Pulse Resp BP Pulse Ox 03/17/16 07:35 98.3 F 20 191/73 91 L 03/17/16 05:45 98.2 F 108 22 180/78 94 L General: Conversant Cardiac: Other (irregularly irregular) Lungs: Other (Decreased bibasilar) Neuro: Alert and responsive Abdomen: Soft (mild tenderness ) Musculoskeletal: No Chest Wall Tenderness Extremities: Other (Dusky/purple toes bilaterally) Results 03/17/16 06:33 03/17/16 05:30 Lab Results 03/16/16 03/16/16 03/17/16 05:11 12:31 05:30 WBC Hgb Hct Plt Count Sodium 134 L 134 L Potassium 4.9 H D 4.3 Chloride 102 99 Carbon Dioxide 16 L 20 BUN 33 H D 44 H D 59 H D Creatinine 2.22 H 2.87 H 2.80 H Glucose 310 H 222 H Calcium 10.0 10.0 TSH 1.107 03/17/16 06:33 WBC 34.3 H* Hgb 12.0 D Hct 39.2 Plt Count 168 D Sodium Potassium Chloride Carbon Dioxide BUN Creatinine Glucose Calcium TSH - Imaging and Cardiology Echo: report reviewed Other Results: Telemetry: avg HR=97 Afib. - EKG Interpretation EKG results cardiology: personally reviewed - VTE Documentation of Mechanical Device: Graduated compression elastic hosiery Consult Discharge Plan - Plan Referrals: Kael Chanel DO [Primary Care Provider] - 03/23/16 11:30 am
[2016-03-17] MEDS: Meropenem 500 MG in 0.9 % Sodium Chloride Mini Bag 100 ML IVPB SCH (09:34)
[2016-03-17] MEDS: Metoprolol 100 MG TABLET PO SCH ×2 (09:34→21:01)
[2016-03-17] MEDS: Diltiazem CD (24hr) 240 MG CAPSULE PO SCH (09:34)
--- NOTE | 2016-03-17 10:00 | Palliative Progress Note ---
Date of Encounter: 03/17/16 Time of Encounter: 09:58 - Assessment and plan (1) Goals of care, counseling/discussion Current Visit: Yes Status: Acute Assessment and plan: Ms. Méndez was enrolled in hospice services prior to admission. Her family is unclear of the hospice philosophy and goals of care. Patient and family are interested in seeking treatment for her illness and have a goal to get her out of the hospital to rehab if necessary. environmental services tech following for discharge needs. (2) Atrial fibrillation with RVR Current Visit: Yes Status: Acute Assessment and plan: cardiology following, rate controlled. (3) Constipation by delayed colonic transit Current Visit: Yes Status: Acute Assessment and plan: Ms. Méndez complains of feeling constipated. She states her last BM was . Her daughter states she takes a stool softener daily and uses daily rectal suppositories to assist with bowel movements. Will start colace daily at HS and order rectal suppository as needed-give one dose today. - Time Spent With Patient Total time spent is greater than 50% in coordination of care (as documented) at patient's floor/unit and/or counseling patient: - Subjective Interval history: Ms. Méndez is more alert this morning and able to participate in conversation. She had a "restless" night according to her daughter Clari (who spent the night). Ms. Méndez does have a cough this morning. She reports feeling constipated (her last BM was 03/14/16). - Constitutional Vitals: Abnormal lab results WBC 34.3 K/mcL (4.3-11.1) H* 03/17/16 06:33 MCV 80.8 fL (83.0-100.0) L 03/17/16 06:33 MCH 24.7 pg (28.0-33.3) L 03/17/16 06:33 MCHC 30.6 g/dL (31.6-35.5) L 03/17/16 06:33 RDW 16.5 % (11.5-14.5) H 03/17/16 06:33 MPV 12.5 fL (9.4-12.4) H 03/17/16 06:33 Neutrophils # 27.8 K/mcL (1.6-8.9) H 03/17/16 06:33 Monocytes # 3.3 K/mcL (0.0-1.3) H 03/17/16 06:33 Nucleated RBCs/100 WBC 0.2 /100 WBC (0) H 03/17/16 06:33 Hypersegmented Neuts Present (Not Present) A 03/16/16 05:11 Reactive Lymphocytes Present (Not Present) A 03/16/16 05:11 Large Platelets Present (Not Present) A 03/16/16 05:11 Immature Plt Fraction 15.3 % (1.1-6.1) H 03/17/16 06:33 PT 13.0 Seconds (9.4-12.1) H 03/15/16 14:45 APTT 25.5 Seconds (26.0-36.0) L 03/15/16 14:45 ABG pH 7.46 pH Units (7.32-7.45) H 03/17/16 06:56 ABG pO2 65 mmHg (85-104) L 03/17/16 06:56 ABG Total CO2 28.2 mEq/L (20-26) H 03/17/16 06:56 ABG O2 Saturation 94 % (95-98) L 03/17/16 06:56 ABG Base Excess 3.1 mEq/L (-2.0 to 3.0) H 03/17/16 06:56 Sodium 134 mEq/L (136-145) L 03/17/16 05:30 BUN 59 mg/dL (7-20) H D 03/17/16 05:30 Creatinine 2.80 mg/dL (0.57-1.11) H 03/17/16 05:30 Est GFR ( Amer) 19 (> 60) L 03/17/16 05:30 Est GFR (Non-Af Amer) 16 (> 60) L 03/17/16 05:30 Glucose 222 mg/dL (70-99) H 03/17/16 05:30 POC Glucose 277 (58-89) H 03/16/16 07:22 Calculated Osmolality 301 (280-300) H 03/17/16 05:30 Troponin I 0.12 ng/mL (0-0.03) H* 03/15/16 20:32 Urine Protein 100 mg/dL (Neg-Trace) H 03/17/16 06:00 Urine Glucose (UA) 100 mg/dL (Normal) H 03/17/16 06:00 Urine Blood Moderate (Negative) H 03/17/16 06:00 Urine Microscopic RBC 5-15 per hpf (0-3) H 03/17/16 06:00 Urine Microscopic WBC 3-5 per hpf (0-3) H 03/17/16 06:00 Ur Squamous Epith Cells Many per lpf (None-Few) H 03/17/16 06:00 Digoxin 2.2 ng/mL (0.8-2.0) H 03/16/16 05:11 General appearance: Present: cooperative, no acute distress - Eye Eye exam: Present: EOMI - ENT ENT exam: Present: mucous membranes moist - Respiratory Respiratory exam: Present: decreased breath sounds - Cardiovascular Cardiovascular exam: Present: irregular rhythm. Absent: tachycardia - GI/Abdominal GI/Abdominal exam: Present: normal bowel sounds, soft, tenderness (with palpation ). Absent: guarding - Additional comments: heredia catheter intact - Extremities Exam Extremities exam: Absent: normal inspection (bilateral feet with purple discoloration, slightly improved from yesterday. Feet remain cool, but improved from yesterday) - Neurological Exam Neurological exam: Present: alert (some confusion, but reorients self. ) - Psychiatric Psychiatric exam: Absent: agitated, anxious - Skin Skin exam: Present: dry. Absent: normal color (bilateral feet with purple discoloration, improved from yesterday. ) Palliative Quality Palliative Quality: Screen for Code Status: Yes, Screen for Goals of Care: Yes, Screen for Pain: Yes, If Pain Regimen Started, Initiate Bowel Regimen: NA, Screen for Nausea/Vomitting: Yes Code Status: 03/15/16 13:25 Resuscitation Status: Active [RES] Routine Comment: Resuscitation Status: [id number] - Labs CBC & Chem 7: 03/17/16 06:33 03/17/16 05:30 Labs: Laboratory Results - last 24 hr 03/16/16 03/16/16 03/16/16 05:11 07:22 09:47 WBC RBC Hgb Hct MCV MCH MCHC RDW Plt Count MPV Immature Gran % Seg Neutrophils % Lymphocytes % Monocytes % Eosinophils % Basophils % Neutrophils # Lymphocytes # Monocytes # Eosinophils # Basophils # Nucleated RBCs/100 WBC Immature Plt Fraction ABG pH ABG pCO2 ABG pO2 ABG HCO3 ABG Total CO2 ABG O2 Saturation ABG Base Excess Liter Flow Blood Gas Modality Inspired O2 Sodium 134 L Potassium 4.9 H D Chloride 102 Carbon Dioxide 16 L BUN 33 H D Creatinine 2.22 H Est GFR ( Amer) 25 L Est GFR (Non-Af Amer) 21 L BUN/Creatinine Ratio 15 Glucose 310 H POC Glucose 277 H Calculated Osmolality 297 Lactic Acid 3.3 H Calcium 10.0 TSH 1.107 Urine Color Urine Clarity Urine pH Ur Specific [place] Urine Protein Urine Glucose (UA) Urine Ketones Urine Blood Urine Nitrite Urine Bilirubin Urine Urobilinogen Ur Leukocyte Esterase Urine Microscopic RBC Urine Microscopic WBC Ur Eosinophil Smear Ur Squamous Epith Cells Urine Bacteria Hyaline Casts Ur Culture Indicated? Random Vancomycin Digoxin 2.2 H 03/16/16 03/16/16 03/17/16 12:31 16:48 05:30 WBC RBC Hgb Hct MCV MCH MCHC RDW Plt Count MPV Immature Gran % Seg Neutrophils % Lymphocytes % Monocytes % Eosinophils % Basophils % Neutrophils # Lymphocytes # Monocytes # Eosinophils # Basophils # Nucleated RBCs/100 WBC Immature Plt Fraction ABG pH ABG pCO2 ABG pO2 ABG HCO3 ABG Total CO2 ABG O2 Saturation ABG Base Excess Liter Flow Blood Gas Modality Inspired O2 Sodium Potassium Chloride Carbon Dioxide BUN 44 H D Creatinine 2.87 H Est GFR ( Amer) 19 L Est GFR (Non-Af Amer) 16 L BUN/Creatinine Ratio 15 Glucose POC Glucose Calculated Osmolality Lactic Acid 2.4 H Calcium TSH Urine Color Urine Clarity Urine pH Ur Specific [place] Urine Protein Urine Glucose (UA) Urine Ketones Urine Blood Urine Nitrite Urine Bilirubin Urine Urobilinogen Ur Leukocyte Esterase Urine Microscopic RBC Urine Microscopic WBC Ur Eosinophil Smear Ur Squamous Epith Cells Urine Bacteria Hyaline Casts Ur Culture Indicated? Random Vancomycin 9.9 Digoxin 03/17/16 03/17/16 03/17/16 05:30 06:00 06:33 WBC 34.3 H* RBC 4.85 Hgb 12.0 D Hct 39.2 MCV 80.8 L MCH 24.7 L MCHC 30.6 L RDW 16.5 H Plt Count 168 D MPV 12.5 H Immature Gran % 1.5 Seg Neutrophils % 80.9 Lymphocytes % 7.6 Monocytes % 9.7 Eosinophils % 0.1 Basophils % 0.2 Neutrophils # 27.8 H Lymphocytes # 2.6 Monocytes # 3.3 H Eosinophils # 0.0 Basophils # 0.1 Nucleated RBCs/100 WBC 0.2 H Immature Plt Fraction 15.3 H ABG pH ABG pCO2 ABG pO2 ABG HCO3 ABG Total CO2 ABG O2 Saturation ABG Base Excess Liter Flow Blood Gas Modality Inspired O2 Sodium 134 L Potassium 4.3 Chloride 99 Carbon Dioxide 20 BUN 59 H D Creatinine 2.80 H Est GFR ( Amer) 19 L Est GFR (Non-Af Amer) 16 L BUN/Creatinine Ratio 21 Glucose 222 H POC Glucose Calculated Osmolality 301 H Lactic Acid Calcium 10.0 TSH Urine Color Yellow Urine Clarity Clear Urine pH 5.5 Ur Specific [place] 1.017 Urine Protein 100 H Urine Glucose (UA) 100 H Urine Ketones Negative Urine Blood Moderate H Urine Nitrite Negative Urine Bilirubin Negative Urine Urobilinogen Normal Ur Leukocyte Esterase Negative Urine Microscopic RBC 5-15 H Urine Microscopic WBC 3-5 H Ur Eosinophil Smear 0 Ur Squamous Epith Cells Many H Urine Bacteria None Seen Hyaline Casts Few Ur Culture Indicated? NO Random Vancomycin Digoxin 03/17/16 03/17/16 06:41 06:56 WBC RBC Hgb Hct MCV MCH MCHC RDW Plt Count MPV Immature Gran % Seg Neutrophils % Lymphocytes % Monocytes % Eosinophils % Basophils % Neutrophils # Lymphocytes # Monocytes # Eosinophils # Basophils # Nucleated RBCs/100 WBC Immature Plt Fraction ABG pH 7.46 H ABG pCO2 38 ABG pO2 65 L ABG HCO3 27.0 ABG Total CO2 28.2 H ABG O2 Saturation 94 L ABG Base Excess 3.1 H Liter Flow 3 Blood Gas Modality [place] Inspired O2 32 Sodium Potassium Chloride Carbon Dioxide BUN Creatinine Est GFR ( Amer) Est GFR (Non-Af Amer) BUN/Creatinine Ratio Glucose POC Glucose Calculated Osmolality Lactic Acid 1.4 Calcium TSH Urine Color Urine Clarity Urine pH Ur Specific [place] Urine Protein Urine Glucose (UA) Urine Ketones Urine Blood Urine Nitrite Urine Bilirubin Urine Urobilinogen Ur Leukocyte Esterase Urine Microscopic RBC Urine Microscopic WBC Ur Eosinophil Smear Ur Squamous Epith Cells Urine Bacteria Hyaline Casts Ur Culture Indicated? Random Vancomycin Digoxin - Impressions Impressions Abdomen/Pelvis CT 03/16/16 10:16 IMPRESSION: 1. Wall thickening of the gastric antrum may reflect gastritis or peptic ulcer disease. 2. Small volume ascites in the abdomen and pelvis. 3. No abdominal aortic aneurysm. D/ / 03/16/2016 11:27:05 Dori Ma MD / codey Interpreting Provider: Dori Ma MD - ABG Interpretation ABG results: ABG ABG pH 7.46 pH Units (7.32-7.45) H 03/17/16 06:56 ABG pCO2 38 mmHg (35-45) 03/17/16 06:56 ABG pO2 65 mmHg (85-104) L 03/17/16 06:56 ABG O2 Saturation 94 % (95-98) L 03/17/16 06:56 PT/INR, D-dimer PT 13.0 Seconds (9.4-12.1) H 03/15/16 14:45 Consult Discharge Plan - Plan Referrals: Kael Chanel DO [Primary Care Provider] - 03/23/16 11:30 am
[2016-03-17] MEDS ORDERED: Bisacodyl 10 MG RECTAL SUPPOSITORY RC PRN (10:08)
[2016-03-17] MEDS: Bisacodyl 10 MG RECTAL SUPPOSITORY RC SCH (11:29)
--- NOTE | 2016-03-17 11:39 | Arterial Study Report ---
LE Arterial Physiologic Study Patient Name:Adalgisa Méndez Order Number:[id number] Procedure Date:03/16/2016 Date:1930ge:86 yrs Gender:Female Lt BP:185 / mmHg Location:[facility] Room #: [id number] Advertising Sales Executive:Brittany Kasper ALDO Referring MD:Roberto Schultz DO warehouse shipping receiving clerk:Kael Chanel DO Reading MD:Michael Monzon MD Primary Indications:Ischemia Risk Factors Yes/No Hypertension Yes Impressions: 1) Bilateral lower extremities waveform demonstrates moderately diminished hemodynamics. 2) Bilateral Ankle Brachial Index demonstrates moderately occlusive disease. Findings LE Arterial Physiologic Exam: PVR: Right: The PVR waveforms are moderately diminished in the right ankle. Left: The PVR waveforms are moderately diminished in the left ankle. Prior Study: No prior study available for comparison. Segmental Pressures Side Location Pressure Index Result Right Posterior Tibial 136 0.74 Moderately Diminished Right Dorsalis Pedis 105 0.57 Moderately Diminished Left Posterior Tibial 98 0.53 Moderately Diminished Left Dorsalis Pedis 91 0.49 Moderately Diminished Ankle Brachial Index Right Systolic Diastolic BRIAN Brachial 0.74 Dorsalis Pedis 105 0.57 Posterior Tibial 136 0.74 Left Systolic Diastolic BRIAN Brachial 185 0.53 Dorsalis Pedis 91 0.49 Posterior Tibial 98 0.53 Updated by Michael Monzon MD on 03/17/2016 11:35:33 AM with Status of Final electronically signed on 03/17/2016 11:35:54 AM with status of Final
[2016-03-17] MEDS ORDERED: Vancomycin 1,000 MG in D5% in Water 250 ML IVPB ONE (14:36)
--- NOTE | 2016-03-17 17:27 | Internal Med Progress Note ---
<Roberto Schultz - Last Filed: 03/17/16 18:28> Date of Encounter: 03/17/16 Time of Encounter: 10:25 - Assessment and plan (1) Sepsis Current Visit: Yes Status: Acute Assessment and plan: 01/15/16 SIRS criteria met with Leukocytosis ( with neutrophilia) and tachycardia. Possible sources would include HCAP pneumonia and possible intraabdominal source. Intraabdominal source less likely given CT findings. Severe sepsis given lactic acidosis and organ dysfunction (JAZZMINE) Currently hemodynamically stable. She is actually hypertensive. Blood cultures ordered. started on vancomycin and Meropenem ( patient with multiple allergies). She dose appear clinically ill. and has multiple comorbidities. We will need to watch her carefully as she could clinically decline. Will follow up with serial exams through the day and sign out to the night team as well. patient is improving clinically. She does have a mild increase in leukocytosis. I expect this to be on the decline tomorrow. Blood cultures are still pending. She has remained afebrile. She is hemodynamically stable. At this time we will continue broad-spectrum antibiotics. Will consider de- escalation if she continues to clinically improve. Qualifiers: Sepsis type: sepsis due to unspecified organism Qualified Code(s): A41.9 - Sepsis, unspecified organism (2) Atrial fibrillation with RVR Current Visit: Yes Status: Acute Assessment and plan: will start on cardizem gtt. Patient has many allergies. they were all entered as an anyphyllactic reaction. However patient previously on cardizemand family states it was listed as allergy as she had an episode of hypertension with it in the past. Cardiology consulted. She is on Xarelto ( may need to be adjusted if renal function dose not improve. currently rate controlled. Will switch to PO cardizem. Continue metoprolol. continue Xarelto. (3) Elevated troponin Current Visit: Yes Status: Acute Assessment and plan: weston barron. In the setting of JAZZMINE. Trending down Appreciate Cardiologies recommendation. (4) Leukocytosis Current Visit: Yes Status: Acute Assessment and plan: Likely from infection. Possibly pneumonia. However chronically elevated. CLL? or other blood disorder? Will get a peripheral smear. mild trend up. Will discuss with pathology about possible flow cytometry. concern for CLL. (5) Raynauds disease Current Visit: Yes Status: Acute Qualifiers: Raynaud?s-associated gangrene presence: without gangrene Qualified Code(s) : I73.00 - Raynaud's syndrome without gangrene (6) COPD (chronic obstructive pulmonary disease) Current Visit: Yes Status: Acute Assessment and plan: currently not in exacerbation Continue home medications. On home dose of O2 -3L NC (7) Lung nodule Current Visit: Yes Status: Acute Assessment and plan: spiculated 1.1 CM lung nodule in RLL. However patient reportedly refused biopsy and thoracentesis per families account. follow up with pulmonology as outpatient. (8) Pleural effusion Current Visit: Yes Status: Acute Assessment and plan: as stated above. will offer thoracentesis again should she become more symptomatic. (9) Pelvic fluid collection Current Visit: Yes Status: Acute Assessment and plan: Etiology unclear at this time. No peritoneal signs on exam. No acute findings on CT of the pelvis. continue serial exams. (10) Atherosclerosis Current Visit: Yes Status: Acute Assessment and plan: add aspirine. she has history of Statin allergy . (11) Acute kidney injury superimposed on chronic kidney disease Current Visit: Yes Status: Acute Assessment and plan: weston prerenal In the setting of sepsis. Urine output improving. However not much improvement in SCR. If not much improvement tomorrow will plan to consult nephrology. (12) Peripheral artery disease Current Visit: Yes Status: Acute Assessment and plan: BRIAN showed moderate flow obstruction. can have exercise test as an outpatient. (13) DVT prophylaxis Current Visit: Yes Status: Acute Assessment and plan: on Xarelto - Subjective Interval history: patient has less confusion today. She denies any difficulty breathing. She denies any new pain or discomfort at this time. She dose state she has mild abdominal discomfort. She has no further complaints or concerns at this time. - Constitutional Vitals: Temp Pulse Resp BP Pulse Ox 98 F 76 18 188/78 95 03/17/16 15:53 03/17/16 15:53 03/17/16 15:53 03/17/16 15:53 03/17/16 16:08 Exam: General: This is a well-developed well-nourished 86-year-old female who currently is alert she is orientated to person place time and situation our she does have some confusion and takes quite a while to answer questions. Lung that appears to be comfortable. She is no longer diaphoretic or toxic appearing. She appears to be comfortable in this time no acute distress. HEENT: Normocephalic atraumatic. Icteric sclera, mucous members are moist. Neck is supple without mass or thyromegaly. Heart: Heart is regular rate and rhythm without murmurs rubs or gallops. Lungs: She does have some mild bilateral basal coarse lung sounds. Abdomen: Abdomen is obese, soft, nondistended, she does have some mild tenderness to palpation diffusely however appears to be less so than yesterday. No guarding no peritoneal signs. Negative he will strictness. Musculoskeletal: Grossly normal for age no gross bruits noted. Extremities: There is no clubbing, cyanosis or edema. There is some mild discoloration of the toes bilateral. With appropriate appearance of the toes and some of the sole of the foot. However this is less than yesterday appears to be improving. Extremities are cool to the touch. Integument: No rashes or lesions noted Internal Medicine: Result - Labs CBC & Chem 7: 03/17/16 06:33 03/17/16 05:30 Labs: Short CBC 03/17/16 Range/Units 06:33 WBC 34.3 H* (4.3-11.1) K/mcL Hgb 12.0 D (11.5-15.4) g/dL Hct 39.2 (35.3-44.9) % Plt Count 168 D (140-400) K/mcL Neutrophils # 27.8 H (1.6-8.9) K/mcL BMP 03/17/16 05:30 Sodium 134 L Potassium 4.3 Chloride 99 Carbon Dioxide 20 BUN 59 H D Creatinine 2.80 H Glucose 222 H Calcium 10.0 Urine 03/17/16 Range/Units 06:00 Urine Color Yellow (Yellow) Urine Clarity Clear (Clear) Urine pH 5.5 (5.0-8.0) pH Units Ur Specific [place] 1.017 (1.010-1.025) Urine Protein 100 H (Neg-Trace) mg/dL Urine Glucose (UA) 100 H (Normal) mg/dL - ABG Interpretation ABG results: ABG ABG pH 7.46 pH Units (7.32-7.45) H 03/17/16 06:56 ABG pCO2 38 mmHg (35-45) 03/17/16 06:56 ABG pO2 65 mmHg (85-104) L 03/17/16 06:56 ABG O2 Saturation 94 % (95-98) L 03/17/16 06:56 PT/INR, D-dimer PT 13.0 Seconds (9.4-12.1) H 03/15/16 14:45 - Impressions Impressions Abdomen/Pelvis CT 03/16/16 10:16 IMPRESSION: 1. Wall thickening of the gastric antrum may reflect gastritis or peptic ulcer disease. 2. Small volume ascites in the abdomen and pelvis. 3. No abdominal aortic aneurysm. D/ / 03/16/2016 11:27:05 Dori Ma MD / codey Interpreting Provider: Dori Ma MD - VTE Documentation of Mechanical Device: Graduated compression elastic hosiery Consult Discharge Plan - Plan Referrals: Kael Chanel DO [Primary Care Provider] - 03/23/16 11:30 am <Fredi Jones P - Last Filed: 03/18/16 17:54> Date of Encounter: 03/18/16 - Constitutional Vitals: Temp Pulse Resp BP Pulse Ox 98 F 76 18 188/78 95 03/17/16 15:53 03/17/16 15:53 03/17/16 15:53 03/17/16 15:53 03/17/16 16:08 Internal Medicine: Result - Labs CBC & Chem 7: 03/18/16 05:39 03/18/16 05:39 Labs: Short CBC 03/17/16 Range/Units 06:33 WBC 34.3 H* (4.3-11.1) K/mcL Hgb 12.0 D (11.5-15.4) g/dL Hct 39.2 (35.3-44.9) % Plt Count 168 D (140-400) K/mcL Neutrophils # 27.8 H (1.6-8.9) K/mcL BMP 03/17/16 05:30 Sodium 134 L Potassium 4.3 Chloride 99 Carbon Dioxide 20 BUN 59 H D Creatinine 2.80 H Glucose 222 H Calcium 10.0 Urine 03/17/16 Range/Units 06:00 Urine Color Yellow (Yellow) Urine Clarity Clear (Clear) Urine pH 5.5 (5.0-8.0) pH Units Ur Specific [place] 1.017 (1.010-1.025) Urine Protein 100 H (Neg-Trace) mg/dL Urine Glucose (UA) 100 H (Normal) mg/dL - ABG Interpretation ABG results: ABG ABG pH 7.46 pH Units (7.32-7.45) H 03/17/16 06:56 ABG pCO2 38 mmHg (35-45) 03/17/16 06:56 ABG pO2 65 mmHg (85-104) L 03/17/16 06:56 ABG O2 Saturation 94 % (95-98) L 03/17/16 06:56 PT/INR, D-dimer PT 13.0 Seconds (9.4-12.1) H 03/15/16 14:45 - Impressions Impressions Abdomen/Pelvis CT 03/16/16 10:16 IMPRESSION: 1. Wall thickening of the gastric antrum may reflect gastritis or peptic ulcer disease. 2. Small volume ascites in the abdomen and pelvis. 3. No abdominal aortic aneurysm. D/ / 03/16/2016 11:27:05 Dori Ma MD / codey Interpreting Provider: Dori Ma MD - Attending Attestation I examined this patient and my medical decision-making was reviewed with the YARN EXAMINER/PA/Advanced Practice Nurse/Resident Physician. I agree with the documented findings, disposition and treatment plan as described except to the extent set forth below.
[2016-03-17] MEDS ORDERED: Nitroglycerin 1 INCH/GM PACKET TP ONE (17:56)
[2016-03-17] MEDS: hydrALAZINE 25 MG TABLET PO SCH (19:31)
[2016-03-17] MEDS: Insulin DETEMIR 100 UNIT/ML X5UNITS SQ SCH (21:01)
[2016-03-18] MEDS: hydrALAZINE 25 MG TABLET PO SCH ×3 (00:04→16:02)
[2016-03-18] MEDS: Acetaminophen 325 MG TABLET PO PRN (02:05)
[2016-03-18 06:17] LABS: Calcium 9.8 mg/dL (8.6-10.8); Potassium 3.9 mEq/L (3.5-4.5)
[2016-03-18 06:24] LABS: Platelet Estimate Normal (Normal)
[2016-03-18 06:30] LABS: Eosinophils # 0.6 K/mcL (0.0-0.6); Hematocrit 33.4 % (35.3-44.9); Hemoglobin 10.2 g/dL (11.5-15.4); Lymphocytes # 2.3 K/mcL (0.6-4.6); Mean Corpuscular HGB Conc 30.5 g/dL (31.6-35.5); Mean Corpuscular Volume 81.9 fL (83.0-100.0); Monocytes # 2.3 K/mcL (0.0-1.3); Neutrophils # 23.2 K/mcL (1.6-8.9); Red Blood Count 4.08 M/mcL (3.82-4.97)
[2016-03-18 06:31] LABS: Mean Platelet Volume 12.8 fL (9.4-12.4); Platelet Count 156 K/mcL (140-400); Red Cell Distribution Width 16.3 % (11.5-14.5)
[2016-03-18 08:02] VITALS: BP 147/118
[2016-03-18] MEDS: *HR* Metoprolol 5 MG/5 ML VIAL IVP PRN (08:22)
[2016-03-18] MEDS: Bisacodyl 10 MG RECTAL SUPPOSITORY RC SCH (08:23)
[2016-03-18] MEDS ORDERED: *HR* Metoprolol 5 MG/5 ML VIAL IVP ONE (08:23)
[2016-03-18] MEDS: Metoprolol 100 MG TABLET PO SCH ×2 (08:23→21:09)
[2016-03-18] MEDS: Diltiazem CD (24hr) 240 MG CAPSULE PO SCH (08:23)
[2016-03-18] MEDS ORDERED: *HR* Heparin 5,000 UNIT/ML VIAL SQ SCH (08:30)
[2016-03-18 08:40] LABS: ABG Base Excess 1.3 mEq/L (-2.0 to 3.0); ABG HCO3 27.6 mEQ/L (21-27); ABG Oxygen Saturation 99 % (95-98); ABG PCO2 50 mmHg (35-45); ABG PH 7.35 pH Units (7.32-7.45); ABG PO2 129 mmHg (85-104); ABG TCO2 29.1 mEq/L (20-26)
[2016-03-18 08:41] LABS: Blood Gas FiO2 100 %
--- NOTE | 2016-03-18 09:03 | Cardiology Progress Note ---
Date of Encounter: 03/18/16 Time of Encounter: 08:40 Assessment and Plan (1) Atrial fibrillation with RVR Current Visit: Yes Status: Acute Hx of PAF, previously on cardizem and betablocker as outpatient; anticoagulated on Xarelto. Questionable allergy to Cardizem, however per outpatient Cardio note, she was taking as home medication. Telemetry review: avg HR=95 afib. Episode of RVR this AM, suspect secondary to respiratory distress as patient was placed on non-rebreather. Increase cardizem to 300 mg daily; will given 60 mg x1 to equal 300 mg this AM. PRN IV Lopressor ordered On Xarelto as outpatient--renal adjusted dose; renal function continues to decline. Recommend stopping Xarelto; discussed with patient/daughter at bedside. Enrolled in hospice as outpatient, frequent falls, and overall poor prognosis; if patient/family desires to continue full anticoagulation, recommend Coumadin therapy. Patient is hesitant to start Coumadin at this point. Discussed with Dr. Mendes who agrees with plan. Heparin 5000 SQ12h ordered for VTE prophylaxis. Plan communicated with primary service. (2) Elevated troponin Current Visit: Yes Status: Acute Mild troponin elevation 0.06, 0.13, 0.12 in the setting of suspected PNA and atrial fibrillation with RVR; likely secondary to demand ischemia. She is chest pain free upon exam. Severe HTN upon admission. (3) JAZZMINE (acute kidney injury) Current Visit: Yes Status: Acute Kidney function continues to worsen. Xarelto stopped. Baseline SCr 1-1.1. Avoid nephrotoxins, consider Nephrology consult if renal function continues to decline; defer further mgmt to primary service. Discussion w patient/family: The assessment and plan as outlined above was discussed with the patient and/or family members who expressed understanding and agreement. All questions were answered. Thank you for involving us in the care of your patient. Please call with any questions. The patient will be discussed and reviewed with Dr. Mendes; changes to be made accordingly. Subjective Principal diagnosis: Afib, Respiratory distress, AMS Interval history: Seen and examined. Lethargic this AM, able to respond to yes/no questions only. Developed respiratory distress early this AM, on non-rebreather. Objective Vital Signs, Last 4 Hours Temp Pulse Resp BP Pulse Ox 03/18/16 08:00 97.5 F L 136 28 147/118 92 L General: Other (appears acutely ill) HEENT: Atraumatic, Normocephaly Cardiac: Other (irregularly irregular) Lungs: Other (Coarse anteriorally) Neuro: Alert and responsive (to self only) Abdomen: Soft Extremities: Other (Dusky great toes bilaterally) Results 03/18/16 05:39 03/18/16 05:39 Lab Results 03/18/16 03/18/16 05:39 05:39 WBC 28.3 H Hgb 10.2 L D Hct 33.4 L Plt Count 156 Sodium 136 Potassium 3.9 Chloride 100 Carbon Dioxide 23 BUN 52 H Creatinine 2.12 H Glucose 194 H Calcium 9.8 - Imaging and Cardiology Echo: report reviewed - EKG Interpretation EKG results cardiology: personally reviewed - VTE Documentation of Mechanical Device: Graduated compression elastic hosiery Consult Discharge Plan - Plan Referrals: Kael Chanel DO [Primary Care Provider] - 03/23/16 11:30 am
[2016-03-18] MEDS ORDERED: *HR* Morphine 2 MG/ML SYRINGE IVP ONE (09:37)
[2016-03-18] MEDS: Insulin LISPRO 300 UNITS/3 ML VIAL SQ SCH ×4 (09:51→12:26)
[2016-03-18] MEDS ORDERED: Meropenem 500 MG in 0.9 % Sodium Chloride Mini Bag 100 ML IVPB SCH (10:30)
[2016-03-18] MEDS: Levalbuterol Neb 1.25 MG/3 ML IH SCH ×2 (10:50→16:03)
[2016-03-18] MEDS: Furosemide 40 MG/4 ML VIAL IVP SCH (11:15)
--- NOTE | 2016-03-18 11:20 | Palliative Progress Note ---
Date of Encounter: 03/18/16 Time of Encounter: 10:30 - Assessment and plan (1) Goals of care, counseling/discussion Current Visit: Yes Status: Acute Assessment and plan: Patient with respiratory insufficiency. CXR with pulmonary edema and pleural effusions. Family desires no intubation or aggressive measures and desire to provide comfort care only. Explained transition to DNRCC and agree to stop antibiotics, labs and injections. Family OK with patient receiving IV lasix to facilitate breathing. Family desires not to transfer patient to bed at this time. Prayer held per Jose Nortonlain and I provided additional family support. ROSA Aguilera and syed Montague at bedside and agreed to DC lunchroom monitor. Patient assessed and positioned for comfort. (2) Dyspnea Current Visit: Yes Status: Acute Assessment and plan: Patient with COPD, bilateral pulmonary edema and effusions. NRB on and respirations 36. Will add morphine and position for best breathing. Fan on in room and HOB up. NRB oxygen titrate for comfort. Qualifiers: Dyspnea type: shortness of breath Qualified Code(s): R06.02 - Shortness of breath (3) COPD (chronic obstructive pulmonary disease) Current Visit: Yes Status: Acute Qualifiers: COPD type: unspecified COPD Qualified Code(s): J44.9 - Chronic obstructive pulmonary disease, unspecified - Time Spent With Patient Total time spent is greater than 50% in coordination of care (as documented) at patient's floor/unit and/or counseling patient: - Subjective Interval history: Patient had an episode of restlessness with SOB. Currently on a NRB mask and sats at 89%. Patient family reports that patient was admitted to hospice care a week ago for COPD. Patient was given 1mg of morphine and is now resting quietly in bed surrounded by family. ROSA Aguilera and syed Montague at bedside. Patient slowly opens her eyes but is non verbal. Respirations rapid at 32, skin flushed to face and chest with bilateral foot mottling. Bilateral toes purple and cold. Patient with hx of Raynauds. Discussed transition to comfort care with family. Family agrees to only providing comfort in the form of morphine and oxygen. Explained comfort care approach. - Constitutional Vitals: Abnormal lab results WBC 28.3 K/mcL (4.3-11.1) H 03/18/16 05:39 Hgb 10.2 g/dL (11.5-15.4) L D 03/18/16 05:39 Hct 33.4 % (35.3-44.9) L 03/18/16 05:39 MCV 81.9 fL (83.0-100.0) L 03/18/16 05:39 MCH 25.0 pg (28.0-33.3) L 03/18/16 05:39 MCHC 30.5 g/dL (31.6-35.5) L 03/18/16 05:39 RDW 16.3 % (11.5-14.5) H 03/18/16 05:39 MPV 12.8 fL (9.4-12.4) H 03/18/16 05:39 Neutrophils # 23.2 K/mcL (1.6-8.9) H 03/18/16 05:39 Monocytes # 2.3 K/mcL (0.0-1.3) H 03/18/16 05:39 Nucleated RBCs/100 WBC 0.2 /100 WBC (0) H 03/17/16 06:33 Hypersegmented Neuts Present (Not Present) A 03/16/16 05:11 Reactive Lymphocytes Present (Not Present) A 03/16/16 05:11 Large Platelets Present (Not Present) A 03/16/16 05:11 Immature Plt Fraction 15.3 % (1.1-6.1) H 03/17/16 06:33 PT 13.0 Seconds (9.4-12.1) H 03/15/16 14:45 APTT 25.5 Seconds (26.0-36.0) L 03/15/16 14:45 ABG pCO2 50 mmHg (35-45) H 03/18/16 08:30 ABG pO2 129 mmHg (85-104) H 03/18/16 08:30 ABG HCO3 27.6 mEQ/L (21-27) H 03/18/16 08:30 ABG Total CO2 29.1 mEq/L (20-26) H 03/18/16 08:30 ABG O2 Saturation 99 % (95-98) H 03/18/16 08:30 BUN 52 mg/dL (7-20) H 03/18/16 05:39 Creatinine 2.12 mg/dL (0.57-1.11) H 03/18/16 05:39 Est GFR ( Amer) 27 (> 60) L 03/18/16 05:39 Est GFR (Non-Af Amer) 22 (> 60) L 03/18/16 05:39 Glucose 194 mg/dL (70-99) H 03/18/16 05:39 POC Glucose 277 (58-89) H 03/16/16 07:22 Calculated Osmolality 301 (280-300) H 03/18/16 05:39 Troponin I 0.12 ng/mL (0-0.03) H* 03/15/16 20:32 Urine Protein 100 mg/dL (Neg-Trace) H 03/17/16 06:00 Urine Glucose (UA) 100 mg/dL (Normal) H 03/17/16 06:00 Urine Blood Moderate (Negative) H 03/17/16 06:00 Urine Microscopic RBC 5-15 per hpf (0-3) H 03/17/16 06:00 Urine Microscopic WBC 3-5 per hpf (0-3) H 03/17/16 06:00 Ur Squamous Epith Cells Many per lpf (None-Few) H 03/17/16 06:00 Digoxin 2.2 ng/mL (0.8-2.0) H 03/16/16 05:11 - Head Head exam: Present: atraumatic, normal inspection, normocephalic - Eye Eye exam: Present: PERRL - ENT ENT exam: Present: mucous membranes dry - Respiratory Respiratory exam: Present: rales - Expanded Respiratory Exam Location: rales: Left, Right, Lower - Cardiovascular Cardiovascular exam: Present: irregular rhythm, +S1, +S2 - GI/Abdominal GI/Abdominal exam: Present: normal bowel sounds, soft - External exam: Present: normal external exam (Cortez cathter in place) - Extremities Exam Extremities exam: Present: tenderness (cool, bilateral toes purple.) - Neurological Exam Neurological exam: Present: altered - Psychiatric Psychiatric exam: Present: flat affect - Skin Skin exam: Present: warm Palliative Quality Palliative Quality: Screen for Code Status: Yes, Screen for Goals of Care: Yes, Screen for Pain: Yes, If Pain Regimen Started, Initiate Bowel Regimen: NA, Screen for Nausea/Vomitting: Yes Code Status: 03/15/16 13:25 Resuscitation Status: Active [RES] Routine Comment: Resuscitation Status: [id number] - Labs CBC & Chem 7: 03/18/16 05:39 03/18/16 05:39 Labs: Laboratory Results - last 24 hr 03/17/16 03/18/16 03/18/16 05:30 05:39 05:39 WBC 28.3 H RBC 4.08 Hgb 10.2 L D Hct 33.4 L MCV 81.9 L MCH 25.0 L MCHC 30.5 L RDW 16.3 H Plt Count 156 MPV 12.8 H Seg Neutrophils % 80.0 Band Neutrophils % 2.0 Lymphocytes % 8.0 Monocytes % 8.0 Eosinophils % 2.0 Neutrophils # 23.2 H Lymphocytes # 2.3 Monocytes # 2.3 H Eosinophils # 0.6 Platelet Estimate Normal Smear Path Review See Below ABG pH ABG pCO2 ABG pO2 ABG HCO3 ABG Total CO2 ABG O2 Saturation ABG Base Excess Blood Gas Modality Inspired O2 Sodium 136 Potassium 3.9 Chloride 100 Carbon Dioxide 23 BUN 52 H Creatinine 2.12 H Est GFR ( Amer) 27 L Est GFR (Non-Af Amer) 22 L BUN/Creatinine Ratio 25 Glucose 194 H Calculated Osmolality 301 H Calcium 9.8 03/18/16 08:30 WBC RBC Hgb Hct MCV MCH MCHC RDW Plt Count MPV Seg Neutrophils % Band Neutrophils % Lymphocytes % Monocytes % Eosinophils % Neutrophils # Lymphocytes # Monocytes # Eosinophils # Platelet Estimate Smear Path Review ABG pH 7.35 ABG pCO2 50 H ABG pO2 129 H ABG HCO3 27.6 H ABG Total CO2 29.1 H ABG O2 Saturation 99 H ABG Base Excess 1.3 Blood Gas Modality NRB Inspired O2 100 Sodium Potassium Chloride Carbon Dioxide BUN Creatinine Est GFR ( Amer) Est GFR (Non-Af Amer) BUN/Creatinine Ratio Glucose Calculated Osmolality Calcium - Impressions Impressions Abdomen/Pelvis CT 03/16/16 10:16 IMPRESSION: 1. Wall thickening of the gastric antrum may reflect gastritis or peptic ulcer disease. 2. Small volume ascites in the abdomen and pelvis. 3. No abdominal aortic aneurysm. D/ / 03/16/2016 11:27:05 Dori Ma MD / codey Interpreting Provider: Dori Ma MD Chest X-Ray 03/18/16 08:23 IMPRESSION: 1. Cardiomegaly with pulmonary edema and bilateral pleural effusions with associated bibasilar atelectasis. D/ / 03/18/2016 08:53:50 Shiraz Polanco MD / bcarter Interpreting Provider: Shiraz Polanco MD - ABG Interpretation ABG results: ABG ABG pH 7.35 pH Units (7.32-7.45) 03/18/16 08:30 ABG pCO2 50 mmHg (35-45) H 03/18/16 08:30 ABG pO2 129 mmHg (85-104) H 03/18/16 08:30 ABG O2 Saturation 99 % (95-98) H 03/18/16 08:30 PT/INR, D-dimer PT 13.0 Seconds (9.4-12.1) H 03/15/16 14:45 Consult Discharge Plan - Plan Referrals: Kael Chanel DO [Primary Care Provider] - 03/23/16 11:30 am
[2016-03-18] MEDS ORDERED: Acetaminophen 650 MG RECTAL SUPP RC PRN (11:32)
[2016-03-18] MEDS ORDERED: *HR* LORazepam 2 MG/ML VIAL IVP PRN (13:41)
--- NOTE | 2016-03-18 13:49 | Event Note ---
Date of Encounter: 03/18/16 Time of Encounter: 13:15 Assessed patients response to Lasix and patient's breathing has improved and respiration now 24. Tolerating NRB mask well. Opens eyes at times. Additional family members arrived and I explained patients condition and reason for diuretics. Confirmed desire to hold antibiotics and insulin for now. Patient appears comfortable at present. Discussed patient receiving Morphine IV and listed allergy. Patient received IV dose of morphine this AM without issue. Patient with no known history of allergy to Ativan. Daughter reports that she has taken Ativan in the past without incident. Will add Ativan PRN for anxiety. Plan is monitor response to lasix and continue comfort care approach. Dr. Jones updated.
--- NOTE | 2016-03-18 16:15 | Internal Med Progress Note ---
<Roberto Schultz - Last Filed: 03/18/16 16:13> Date of Encounter: 03/18/16 Time of Encounter: 08:10 - Assessment and plan (1) Sepsis Current Visit: Yes Status: Acute Assessment and plan: 01/15/16 SIRS criteria met with Leukocytosis ( with neutrophilia) and tachycardia. Possible sources would include HCAP pneumonia and possible intraabdominal source. Intraabdominal source less likely given CT findings. Severe sepsis given lactic acidosis and organ dysfunction (JAZZMINE) Currently hemodynamically stable. She is actually hypertensive. Blood cultures ordered. started on vancomycin and Meropenem ( patient with multiple allergies). She dose appear clinically ill. and has multiple comorbidities. We will need to watch her carefully as she could clinically decline. Will follow up with serial exams through the day and sign out to the night team as well. patient is improving clinically. She does have a mild increase in leukocytosis. I expect this to be on the decline tomorrow. Blood cultures are still pending. She has remained afebrile. She is hemodynamically stable. At this time we will continue broad-spectrum antibiotics. Will consider de- escalation if she continues to clinically improve. 03/18/16 goals of care have change and family wishes to focus on comfort measures only. will stop all medication except for comfort measures. Qualifiers: Sepsis type: sepsis due to unspecified organism Qualified Code(s): A41.9 - Sepsis, unspecified organism (2) Atrial fibrillation with RVR Current Visit: Yes Status: Acute Assessment and plan: will start on cardizem gtt. Patient has many allergies. they were all entered as an anyphyllactic reaction. However patient previously on cardizemand family states it was listed as allergy as she had an episode of hypertension with it in the past. Cardiology consulted. She is on Xarelto ( may need to be adjusted if renal function dose not improve. currently rate controlled. Will switch to PO cardizem. Continue metoprolol. continue Xarelto. 03/18/16 patient now DNR CC continue rate control medication. No AC given renal function and fall risk as well as goals of care (3) Elevated troponin Current Visit: Yes Status: Acute Assessment and plan: weston barron. In the setting of JAZZMINE. Trending down Appreciate Cardiologies recommendation. 03/18/16 comfort care. (4) Leukocytosis Current Visit: Yes Status: Acute Assessment and plan: Likely from infection. Possibly pneumonia. However chronically elevated. CLL? or other blood disorder? Will get a peripheral smear. mild trend up. Will discuss with pathology about possible flow cytometry. concern for CLL. 03/18/16 trending down (5) COPD (chronic obstructive pulmonary disease) Current Visit: Yes Status: Acute Qualifiers: COPD type: unspecified COPD Qualified Code(s): J44.9 - Chronic obstructive pulmonary disease, unspecified (6) Pelvic fluid collection Current Visit: Yes Status: Acute Assessment and plan: Etiology unclear at this time. No peritoneal signs on exam. No acute findings on CT of the pelvis. continue serial exams. (7) Atherosclerosis Current Visit: Yes Status: Acute Assessment and plan: continue aspirin she has history of Statin allergy . (8) Acute kidney injury superimposed on chronic kidney disease Current Visit: Yes Status: Acute Assessment and plan: improving with decreasing SCR and increased urine output. (9) Peripheral artery disease Current Visit: Yes Status: Acute Assessment and plan: BRIAN showed moderate flow obstruction. can have exercise test as an outpatient. 03/18/16 DNR CC - Subjective Interval history: Patient developed increased shortness of breath overnight and requiring nonrebreather ton maintain oxygen saturation. she has also become more confused and agitated as well. - Constitutional Vitals: Temp Pulse Resp BP Pulse Ox 97.5 F L 136 28 147/118 92 L 03/18/16 08:00 03/18/16 08:00 03/18/16 08:00 03/18/16 08:00 03/18/16 08:00 General appearance: Present: A&O X 1, mild distress, obese - Head Head exam: Present: atraumatic, normocephalic - Eye Eye exam: Present: PERRL, conjuntiva pink, sclera anicteric Pupils: Present: PERRL - Neck Neck exam general surgery: Present: supple, trachea midline. Absent: lymphadenopathy - Respiratory Additional comments: increased effort, tachypneic, bilateral crackles of the lungs. - Cardiovascular Cardiovascular exam: Present: irregular rhythm, +S1, +S2, tachycardia (rate in 90s). Absent: diastolic murmur, gallop, rubs, systolic murmur - GI/Abdominal GI/Abdominal exam: Present: normal bowel sounds, soft, tenderness (mild diffuse) , no peritoneal signs. Absent: distended - Extremities Exam Extremities exam: Present: warm, radial pulses palpable and symetrical. Absent : calf tenderness, cyanotic, pedal edema - Skin Skin exam: Present: dry, intact Internal Medicine: Result - Labs CBC & Chem 7: 03/18/16 05:39 03/18/16 05:39 Labs: Short CBC 03/18/16 Range/Units 05:39 WBC 28.3 H (4.3-11.1) K/mcL Hgb 10.2 L D (11.5-15.4) g/dL Hct 33.4 L (35.3-44.9) % Plt Count 156 (140-400) K/mcL Neutrophils # 23.2 H (1.6-8.9) K/mcL BMP 03/18/16 05:39 Sodium 136 Potassium 3.9 Chloride 100 Carbon Dioxide 23 BUN 52 H Creatinine 2.12 H Glucose 194 H Calcium 9.8 - ABG Interpretation ABG results: ABG ABG pH 7.35 pH Units (7.32-7.45) 03/18/16 08:30 ABG pCO2 50 mmHg (35-45) H 03/18/16 08:30 ABG pO2 129 mmHg (85-104) H 03/18/16 08:30 ABG O2 Saturation 99 % (95-98) H 03/18/16 08:30 PT/INR, D-dimer PT 13.0 Seconds (9.4-12.1) H 03/15/16 14:45 - Impressions Impressions Chest X-Ray 03/18/16 08:23 IMPRESSION: 1. Cardiomegaly with pulmonary edema and bilateral pleural effusions with associated bibasilar atelectasis. D/ / 03/18/2016 08:53:50 Shiraz Polanco MD / bcarter Interpreting Provider: Shiraz Polanco MD - VTE Documentation of Mechanical Device: Graduated compression elastic hosiery Consult Discharge Plan - Plan Referrals: Kael Chanel DO [Primary Care Provider] - 03/23/16 11:30 am <Fredi Jones P - Last Filed: 03/18/16 17:55> Date of Encounter: 03/18/16 - Constitutional Vitals: Temp Pulse Resp BP Pulse Ox 97.5 F L 136 28 147/118 92 L 03/18/16 08:00 03/18/16 08:00 03/18/16 08:00 03/18/16 08:00 03/18/16 08:00 Internal Medicine: Result - Labs CBC & Chem 7: 03/18/16 05:39 03/18/16 05:39 Labs: Short CBC 03/18/16 Range/Units 05:39 WBC 28.3 H (4.3-11.1) K/mcL Hgb 10.2 L D (11.5-15.4) g/dL Hct 33.4 L (35.3-44.9) % Plt Count 156 (140-400) K/mcL Neutrophils # 23.2 H (1.6-8.9) K/mcL BMP 03/18/16 05:39 Sodium 136 Potassium 3.9 Chloride 100 Carbon Dioxide 23 BUN 52 H Creatinine 2.12 H Glucose 194 H Calcium 9.8 - ABG Interpretation ABG results: ABG ABG pH 7.35 pH Units (7.32-7.45) 03/18/16 08:30 ABG pCO2 50 mmHg (35-45) H 03/18/16 08:30 ABG pO2 129 mmHg (85-104) H 03/18/16 08:30 ABG O2 Saturation 99 % (95-98) H 03/18/16 08:30 PT/INR, D-dimer PT 13.0 Seconds (9.4-12.1) H 03/15/16 14:45 - Impressions Impressions Chest X-Ray 03/18/16 08:23 IMPRESSION: 1. Cardiomegaly with pulmonary edema and bilateral pleural effusions with associated bibasilar atelectasis. D/ / 03/18/2016 08:53:50 Shiraz Polanco MD / bcarter Interpreting Provider: Shiraz Polanco MD - Attending Attestation I examined this patient and my medical decision-making was reviewed with the NURSE LDR/PA/Advanced Practice Nurse/Resident Physician. I agree with the documented findings, disposition and treatment plan as described except to the extent set forth below.
[2016-03-18] MEDS ORDERED: Levalbuterol Neb 1.25 MG/3 ML IH PRN (18:26)
[2016-03-18] MEDS: *HR* Morphine 2 MG/ML SYRINGE IVP PRN ×4 (19:06→23:08)
[2016-03-18] MEDS: *HR* LORazepam 2 MG/ML VIAL IVP PRN (21:45)
[2016-03-19] MEDS: *HR* LORazepam 2 MG/ML VIAL IVP PRN (00:26)
[2016-03-19] MEDS: *HR* Morphine 2 MG/ML SYRINGE IVP PRN ×2 (00:26→06:38)
[2016-03-19] MEDS: hydrALAZINE 25 MG TABLET PO SCH ×2 (02:01→08:53)
--- NOTE | 2016-03-19 08:04 | Electrocardiograph Report ---
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
[2016-03-19] MEDS: Metoprolol 100 MG TABLET PO SCH (08:54)
[2016-03-19] MEDS ORDERED: Diltiazem CD (24hr) 300 MG CAPSULE PO SCH (09:00)
[2016-03-19] MEDS: Furosemide 40 MG/4 ML VIAL IVP SCH (09:25)
--- NOTE | 2016-03-19 10:01 | Event Note ---
Date of Encounter: 03/19/16 Time of Encounter: 09:00 Conducted bedside family meeting with daughters and son. Reviewed patients condition over last night. Family now desires to transition to [facility] inpatient hospice care. Educated on transition process and hospice will arrive to compete admission. Family desires to remain on [facility] as they are very happy with the care there. Case discussed with Dr. Cabrera and Dr. Jones. Bed management notified. Hospice diagnosis end-stage COPD.
--- NOTE | 2016-03-19 12:40 | Discharge Summary ---
Date of Encounter: 03/29/16 Time of Encounter: 12:39 - Discharge Diagnosis (1) Acute exacerbation of chronic obstructive airways disease Priority: Primary Status: Acute (2) Acute kidney injury superimposed on chronic kidney disease Priority: Primary Status: Acute (3) Atrial fibrillation with RVR Priority: Primary Status: Acute (4) Elevated troponin Priority: Primary Status: Acute (5) Peripheral artery disease Priority: Secondary Status: Acute - Discharge Medications Home Medications: B2/Vits A,C,E/Lut/Zeaxanth/Min [Icaps Tablet] 1 each PO HS 03/27/15 [History] Cholecalciferol (Vitamin D3) [Vitamin D3] 5,000 unit PO HS 03/27/15 [History] ClonazePAM [Klonopin] 0.5 mg PO HS 03/27/15 [History] Docusate [Colace] 100 mg PO HS 03/27/15 [History] Furosemide [Lasix] 80 mg PO QAM 03/27/15 [History] Insulin NPH Hum/Reg Insulin Hm [Novolin 70-30 100 Unit/ml Vial] 35 unit SQ BID 03/27/15 [History] Losartan [Cozaar] 50 mg PO HS 03/27/15 [History] [place]-3/Dha/Epa/Fish Oil [[place] 3 500 Softgel] 2 cap PO QAM 03/27/15 [History] Omeprazole [PriLOSEC] 40 mg PO QAM 03/27/15 [History] Potassium Chloride [K-Tab ER] 20 meq PO BID 03/27/15 [History] Albuterol Neb [Proventil Neb] 2.5 mg IH Q6H PRN 11/13/15 [History] Albuterol Sulfate [Proair Hfa] 2 puff IH Q4H PRN 11/13/15 [History] Denosumab [Prolia (For Outpatient Infusion)] 60 mg SQ [id number] 11/13/15 [History ] Rivaroxaban [Xarelto] 15 mg PO QAM 11/13/15 [History] Tiotropium [Spiriva] 18 mcg IH DAILY@0700 #30 inh 02/24/16 [Rx] Verapamil ER (24 HR) [Calan SR] 240 mg PO DAILY #30 tablet.er 02/24/16 [Rx] Budesonide/Formoterol 160/4.5 [Symbicort 160/4.5] 2 puff IH BID 03/15/16 [ History] Digoxin [Lanoxin] 0.125 mg PO DAILY 03/15/16 [History] Metoprolol [Lopressor] 100 mg PO BID 03/15/16 [History] Venlafaxine [Effexor] 75 mg PO DAILY 03/15/16 [History] Allergies/Adverse Reactions: Allergies aminophylline Allergy (Verified 03/15/16 14:43) Anaphylaxis bacitracin Allergy (Verified 03/15/16 14:43) Anaphylaxis Calcium Channel Blocking Agents-Dih Allergy (Verified 03/15/16 14:43) Anaphylaxis cephalexin Allergy (Verified 03/15/16 14:43) Anaphylaxis Cephalosporins Allergy (Verified 03/15/16 14:43) Anaphylaxis Erythromycin Base Allergy (Verified 03/15/16 14:43) Anaphylaxis Macrolide Antibiotics Allergy (Verified 03/15/16 14:43) Anaphylaxis menthol Allergy (Verified 03/15/16 14:43) Anaphylaxis meperidine Allergy (Verified 03/15/16 14:43) Anaphylaxis methyl salicylate Allergy (Verified 03/15/16 14:43) Anaphylaxis morphine Allergy (Verified 03/15/16 14:43) Anaphylaxis nifedipine Allergy (Verified 03/15/16 14:43) Anaphylaxis Penicillins Allergy (Verified 03/15/16 14:43) Anaphylaxis polymyxin B Allergy (Verified 03/15/16 14:43) Anaphylaxis simvastatin Allergy (Verified 03/15/16 14:43) Anaphylaxis Cbeckoz-Suq-Fbx Reductase Inhibitor [HMG-Coa Reductase Inhibitors] Allergy ( Verified 03/15/16 14:43) Anaphylaxis Sulfa (Sulfonamide Antibiotics) Allergy (Verified 03/15/16 14:43) Anaphylaxis theophylline Allergy (Verified 03/15/16 14:43) Anaphylaxis Iodinated Contrast Media - Oral and [Iodinated Contrast Media - IV Dye] Adverse Reaction (Verified 03/15/16 14:43) Anaphylaxis Procedures/tests Complete & Pending: Procedures Performed prior 72 hours Category Date Time Status ECG 12 lead ECG [ECG] Routine Y 03/18/16 Completed EV ankle brachial index Stat Y 03/16/16 12:04 Completed EV renal artery image Routine Y 03/18/16 07:00 Completed Date of admission: 03/15/16 13:25 Primary care physician: Kael Chanel DO Consults: 03/15/16 13:35 Consult to Knowledge Analyst [CONS] Routine Reason for SW Consult: discharge planning- patient lives alone - unable to care for self and take medications 03/15/16 13:36 Consult to Occupational Therapy [CONS] Routine Comment: Evaluate, develop and implement POC Consult to Physical Therapy [CONS] Routine Comment: Evaluate, develop and implement POC 03/15/16 13:53 Consult to Cardiology [CONS] Routine Comment: Consulting Provider: Cardiology Vivian Reason for Consult: afib rvr, elevated troponin Time Notified: 13:53 Call Completed: Yes 03/16/16 11:38 Consult to Palliative Care [CONS] Routine Comment: Consulting Provider: Palliative Care Vivian Discharging clinician: Fredi Jones - Patient Status Disposition: Hospice - Medical Facility Condition: Critical Functional capacity at discharge: bed bound Overall status at discharge: patient is not back to baseline - Discharge Instructions Instructions: Heart Failure (DC), Atrial Fibrillation (DC), Diabetes Mellitus Type 2 in Adults (DC), Peripheral Vascular Disorders (DC), Chronic Obstructive Pulmonary Disease (DC), Sepsis (DC), Chronic Hypertension (DC) Follow Up With: Kael Chanel DO [Primary Care Provider] - Interval History: Ms. Méndez is a 86 year old female past medical history of paroxysmal atrial fibrillation diastolic heart failure COPD oxygen dependent hypertension diabetes. Patient lives alone normally takes care of herself ambulating with a walker however over the past week she has experiencing increasing weakness unable to ambulate using a wheelchair as requiring family members to stay with her and help her with medications and ADLs. Family members have noticed medications that have been dropped on the floor patient attempting to inject insulin into her house coat, and requiring more assistance with transfers. This a.m. the patient got up to use the bathroom and she fell from standing. She denies any dizziness chest pain palpitations or loss of consciousness. She did complain of lower back pain She was brought to the [facility] ER for evaluation. Upon arrival was noted patient was in A. fib RVR with a heart rate of 1:30. Chest x-ray was indicative of congestive heart failure BNP was elevated at 1027 troponin was 0.06 patient did have elevated blood pressure on presentation to 201/125. CT of lumbar and pelvis were negative for fracture patient was given Bumex in the ER and was transferred to [facility] for further workup and evaluation. Upon assessment patient denies any chest pain or shortness of breath at this time. She is presently in atrial fibrillation on the monitor with a rate between 90-120. Oxygen saturation 94-97% on 3 L. Hospital course: Patient was hospitalized. Patient was treated as a reservation of COPD. Over the course patient gradually deteriorated. Family requested hospice care. Palliative care was consulted. Palliative requested to transfer patient for a GIP bed. Patient was discharged from this unit and then transferred for a GIP bed - Time Spent with Patient Total time spent providing and/or coordinating discharge services: - Constitutional Vitals: Temp Pulse Resp BP Pulse Ox 101.1 F H 136 25 147/118 97 03/19/16 09:07 03/18/16 08:00 03/19/16 04:56 03/18/16 08:00 03/19/16 08:00 General appearance: Present: A&O X 1, mild distress, obese - Head Head exam: Present: atraumatic, normocephalic - Eye Eye exam: Present: PERRL, conjuntiva pink, sclera anicteric Pupils: Present: PERRL - Neck Neck exam general surgery: Present: supple, trachea midline. Absent: lymphadenopathy - Respiratory Respiratory exam: Present: CTAB. Absent: accessory muscle use, rales, rhonchi, wheezes - Cardiovascular Cardiovascular exam: Present: RRR, +S1, +S2. Absent: diastolic murmur, gallop, rubs, systolic murmur - GI/Abdominal GI/Abdominal exam: Present: normal bowel sounds, soft, no peritoneal signs. Absent: distended, tenderness - Extremities Exam Extremities exam: Present: warm, radial pulses palpable and symetrical. Absent : calf tenderness, cyanotic, pedal edema - Neurological Exam Neurological exam: Present: CN II-XII intact, oriented X3, no focal deficits. Absent: pronater drift, facial droop, speech deficit - Skin Skin exam: Present: dry, intact - VTE Documentation of Mechanical Device: Graduated compression elastic hosiery
--- NOTE | 2016-03-19 12:53 | Event Note ---
Date of Encounter: 03/19/16 Time of Encounter: 12:51 Hospice director of medical services certification of terminal illness: Hospice benefit. Start: 03/19/2016 Hospice benefit. In: +90 days Palliative performance scale: 20-30% History: Patient was originally hospitalized for weakness and falling a tentative diagnosis of congestive heart failure and A. fib with RVR. She was also found to have a significantly elevated white blood cell count as well as a spot on her lung. Patient has not responded to treatment at all, and has in fact declined. In addition to this the spot on the lung is concerning for cancer and the increased white count is concerning for CLL. The family does not wish to have any further aggressive care and to not work any of this other stuff up. Antibiotics have been stopped. The patient has been transitioned to comfort care only. Therefore I find that These findings support a life expectancy of 6 months or less. I attest that I have compose the above narrative based on my review of the patient's medical records, and or on my examination of the patient. Akash Cabrera M.D. Associate medical program specialist. [facility]
[2016-03-19] MEDS ORDERED: Aminoglycoside Consult 1 EACH MC ONE (13:04)
--- NOTE | 2016-03-19 14:04 | Arterial Study Report ---
Renal Duplex Patient Name:Adalgisa Méndez Order Number:[id number] Procedure Date:03/18/2016 Date:1930ge:86 yrs Gender:Female Location:[facility] Room #: 2NE24 [place] Applicator:Shelby Beckford, RDCS, RVT Referring MD:Roberto Schultz DO phlebotomy director:Kael Chanel DO Reading MD:Michael Monzon MD Primary Indications:Rule Out Renal Artery Stenosis Risk Factors Yes/No Hypertension Yes Diabetes Yes Hypercholesterolemia No Hx of TIA No Hx of CVA Yes Impressions: Findings: bilateral renal artery is hemodynamically well maintained. Recommendations: Test completed on 03/18/2016 at 9:30:32 am. Findings Renal Anatomy: The left kidney size measures 9.7 x 3.9 x 5.2 cm. Prior Study: No prior study available for comparison. Renal Duplex Side Vessel PSV EDV RI PI Accel Left Distal Renal Artery 47.00 7.00 0.85 Left Mid Renal Artery 64.00 8.00 0.88 Left Proximal Renal Artery 88.00 15.00 0.83 Left Renal Artery [place] 11.00 4.00 0.64 Updated by Michael Monzon MD on 03/19/2016 1:59:49 PM electronically signed on 03/19/2016 2:00:04 PM with status of Final
== END 2016-03-19 13:05 | disposition hospice, inpatient (51) | DRG 871 ==
LOC: 2NENU → SUATTDRO 13:25
PROVIDERS: ADMIT Nurse Practitioner Acute Care; ATTEND Internal Medicine

== ENCOUNTER 2016-03-19 10:02 | Inpatient (IN) ==
[2016-03-19] MEDS ORDERED: Atropine Sulfate 1% 40 DROP/2 ML BOTTLE SL PRN (10:10)
[2016-03-19] MEDS ORDERED: Haloperidol Lactate 5 MG/ML VIAL IVP PRN (10:10)
[2016-03-19] MEDS ORDERED: Ipratropium/Albuterol Neb 3 ML IH PRN (10:10)
[2016-03-19] MEDS ORDERED: Albuterol 2.5 MG/3 ML NEBULIZER IH PRN (10:10)
[2016-03-19] MEDS ORDERED: Bisacodyl 10 MG RECTAL SUPPOSITORY RC PRN (10:10)
[2016-03-19] MEDS ORDERED: Ondansetron 4 MG/2 ML VIAL IVP PRN (10:10)
[2016-03-19] MEDS ORDERED: Acetaminophen 650 MG RECTAL SUPP RC PRN (10:10)
[2016-03-19] MEDS ORDERED: *HR* LORazepam 2 MG/ML VIAL IVP PRN (10:10)
--- NOTE | 2016-03-19 12:43 | Palliative - Consult Note ---
Date of Encounter: 03/19/16 Time of Encounter: 12:00 - Assessment and Plan (1) Dyspnea Status: Acute Assessment and plan: Patient with NRB mask on, tolerating well. Provide oxygen as needed, morphine hourly for dyspnea, and ativan as needed for anxiety. Position for comfort. Qualifiers: Dyspnea type: shortness of breath Qualified Code(s): R06.02 - Shortness of breath (2) Anxiety Status: Acute Assessment and plan: Patient ordered Ativan IVP as needed for agitation and anxiety. (3) Goals of care, counseling/discussion Status: Acute Assessment and plan: Patient is admitted to inpatient hospice care. Patient nonverbal with minimal responsiveness. Family desires no aggressive measures as per patients wishes. Patient is DNRCC - Comfort care. Palliative-CN HPI - Data of Consult Patient: new to practice Consult date: 03/19/16 Requesting Physician: Akash Cabrera MD - Consult Narrative Palliative Care/Comfort Measures: Hospice care Reason for consult: Hospice Comfort Care History of present illness: Ms. Méndez is a 86 year old female admitted with sepsis and Paroxysmal Atrial Fibrillation. The patient was treated with antibiotics, oxygen, and cardiology was consulted for her PAF. The patient went into respiratory distress on the morning of 03/18/16 with a CXR showing pulmonary edema and pleural effusions. The patient became weak and nonverbal. The palliative care team conducted a family meeting for goals of care and the patient desired no intubation or mechanical ventilation. The patient was placed on a non-rebreather mask and given lasix 40 mg IVPm morphine for dyspnea and ativan for her anxiety. A transition to comfort care was decided by her two daughters and one son. The patient is being admitted to inpatient hospice care for COPD and Sepsis. CC: Akash Cabrera MD Past Med Surg Social Fam HX - Past Medical History Source: old records reviewed, obtained from family Medical history: arthritis, atrial fibrillation, CHF (chronic, diastolic), COPD , CVA, peripheral artery disease (Raynauds disease) Psychiatric history: anxiety - Past Surgical History Surgical History: cataract, hysterectomy, orthopedic, other - Social History Smoking Status: Former smoker Smokeless Tobacco Status: No Alcohol use: none Drug use: none Occupational status: unemployed Current living situation: Home Activity Level: Bed bound Recent Out of Country Travel Within the Last 8 Weeks: No Exposure or Possible Exposure to Illness During Travel: No - Family History Mother Living Status: Hx Family Cardiac Disorders: Yes Father Living Status: Hx Family Cancer: Yes Brother Hx Family Cardiac Disorders: Yes (CAD, has PPM) Sister Hx Family Cardiac Disorders: Yes (CAD, has PPM) Daughter Living Status: Hx Family Cancer: Yes Medications and Allergies B2/Vits A,C,E/Lut/Zeaxanth/Min [Icaps Tablet] 1 each PO HS 03/27/15 [History] Cholecalciferol (Vitamin D3) [Vitamin D3] 5,000 unit PO HS 03/27/15 [History] ClonazePAM [Klonopin] 0.5 mg PO HS 03/27/15 [History] Docusate [Colace] 100 mg PO HS 03/27/15 [History] Furosemide [Lasix] 80 mg PO QAM 03/27/15 [History] Insulin NPH Hum/Reg Insulin Hm [Novolin 70-30 100 Unit/ml Vial] 35 unit SQ BID 03/27/15 [History] Losartan [Cozaar] 50 mg PO HS 03/27/15 [History] [place]-3/Dha/Epa/Fish Oil [[place] 3 500 Softgel] 2 cap PO QAM 03/27/15 [History] Omeprazole [PriLOSEC] 40 mg PO QAM 03/27/15 [History] Potassium Chloride [K-Tab ER] 20 meq PO BID 03/27/15 [History] Albuterol Neb [Proventil Neb] 2.5 mg IH Q6H PRN 11/13/15 [History] Albuterol Sulfate [Proair Hfa] 2 puff IH Q4H PRN 11/13/15 [History] Denosumab [Prolia (For Outpatient Infusion)] 60 mg SQ [id number] 11/13/15 [History ] Rivaroxaban [Xarelto] 10 mg PO QAM 11/13/15 [History] Tiotropium [Spiriva] 18 mcg IH DAILY@0700 #30 inh 02/24/16 [Rx] Verapamil ER (24 HR) [Calan SR] 240 mg PO DAILY #30 tablet.er 02/24/16 [Rx] Budesonide/Formoterol 160/4.5 [Symbicort 160/4.5] 2 puff IH BID 03/15/16 [ History] Digoxin [Lanoxin] 0.125 mg PO DAILY 03/15/16 [History] Metoprolol [Lopressor] 100 mg PO BID 03/15/16 [History] Venlafaxine [Effexor] 75 mg PO DAILY 03/15/16 [History] Allergies aminophylline Allergy (Verified 03/15/16 14:43) Anaphylaxis bacitracin Allergy (Verified 03/15/16 14:43) Anaphylaxis Calcium Channel Blocking Agents-Dih Allergy (Verified 03/15/16 14:43) Anaphylaxis cephalexin Allergy (Verified 03/15/16 14:43) Anaphylaxis Cephalosporins Allergy (Verified 03/15/16 14:43) Anaphylaxis Erythromycin Base Allergy (Verified 03/15/16 14:43) Anaphylaxis Macrolide Antibiotics Allergy (Verified 03/15/16 14:43) Anaphylaxis menthol Allergy (Verified 03/15/16 14:43) Anaphylaxis meperidine Allergy (Verified 03/15/16 14:43) Anaphylaxis methyl salicylate Allergy (Verified 03/15/16 14:43) Anaphylaxis morphine Allergy (Verified 03/15/16 14:43) Anaphylaxis nifedipine Allergy (Verified 03/15/16 14:43) Anaphylaxis Penicillins Allergy (Verified 03/15/16 14:43) Anaphylaxis polymyxin B Allergy (Verified 03/15/16 14:43) Anaphylaxis simvastatin Allergy (Verified 03/15/16 14:43) Anaphylaxis Yssxbmx-Iee-Vyw Reductase Inhibitor [HMG-Coa Reductase Inhibitors] Allergy ( Verified 03/15/16 14:43) Anaphylaxis Sulfa (Sulfonamide Antibiotics) Allergy (Verified 03/15/16 14:43) Anaphylaxis theophylline Allergy (Verified 03/15/16 14:43) Anaphylaxis Iodinated Contrast Media - Oral and [Iodinated Contrast Media - IV Dye] Adverse Reaction (Verified 03/15/16 14:43) Anaphylaxis ROS unobtainable: due to mental status (patient is nonverbal and only opens eyes. ) - Constitutional Constitutional ROS PAL: fatigue, fever(s) - EENT Ears, nose, mouth, throat: dry mouth - Cardiovascular Cardiovascular ROS: palpitations - Respiratory Respiratory: other (SOB, dyspnea) - Musculoskeletal Musculoskeletal ROS IM: muscle weakness - Integumentary ROS Integumentary: other (Bilateral toes cold and cyanotic) - Neurological Neurological ROS: weakness - Psychiatric Psychiatric general PM: anxiety Palliative Care-Exam - Constitutional General appearance: Present: no acute distress - Head Head Exam: Present: atraumatic, normal inspection, normocephalic - Eye Eye exam: Present: PERRL - ENT ENT exam: Present: mucous membranes moist - Respiratory Respiratory exam: Present: decreased breath sounds, rales - Expanded Respiratory Exam Location: decreased breath sounds: Left, Right, Upper, rales: Lower - Cardiovascular Cardiovascular exam: Present: irregular rhythm, +S1, +S2 - Expanded Cardiovascular Exam Peripheral pulses: 1+: Femoral (L) PM, Femoral (R) PM, Posterior Tibialis (L), Posterior Tibialis (R), 2+: Carotid (L) PM, Carotid (R) PM, Radial (L), Radial ( R), Dorsalis Pedis (L) PM, Dorsalis Pedis (R) PM - GI/Abdominal Exam GI/Abdominal exam: Present: diminished bowel sounds - Rectal Rectal exam: Present: deferred - Catheter Type: Urethral ([place]) (draining yellow) - Extremities Exam Extremities exam: Present: tenderness (bilateral feet cold, toes cyanotic) - Neurological Exam Neurological exam: Present: altered (eyes closed, nonverbal) - Psychiatric Psychiatric exam: Present: flat affect - Skin Skin exam: Present: warm Palliative Quality Palliative Quality: Screen for Code Status: Yes, Screen for Goals of Care: Yes, Screen for Pain: Yes, If Pain Regimen Started, Initiate Bowel Regimen: Yes, Screen for Nausea/Vomitting: Yes Code Status: 03/19/16 10:10 Resuscitation Status: Active [RES] Routine Comment: Resuscitation Status: DNR-Comfort Care
--- NOTE | 2016-03-19 13:04 | Pallative History & Physical ---
Date of Encounter: 03/19/16 Time of Encounter: 10:20 Assessment and Plan (1) Anxiety Current visit: Yes Status: Acute Ativan available as needed for agitation and anxiety (2) Dyspnea Current visit: No Status: Acute Continue oxygen therapy morphine hourly as needed for dyspnea and Ativan as needed for anxiety Qualifiers: Dyspnea type: shortness of breath Qualified Code(s): R06.02 - Shortness of breath (3) Goals of care, counseling/discussion Current visit: No Status: Acute The patient appears to be readmitted to [facility], and transition to general inpatient hospice care. Specifically determined that they cannot provide adequate care for the patient at home or in a long term therefore the patient will remain on GIP or symptomatic control of dyspnea. Internal Medicine - H&P: HPI Admitted From: Intrahospital Transfer Plans for Post Hospital Care: Hospice - Home History of present illness: Ms. Méndez is a 86 year old female Was originally brought in the hospital for complaints of increasing weakness and fallcongestive heart failure and A. fib with rapid ventricular response. During the course of hospitalization was also the patient had a very very high white blood cell count was thought to be due to sepsis, however the patient did not respond at all to antibiotic therapy. Jonas it was thought the patient might very well have been noted to have a spot on the lung that looks suspicious for cancer. As the patient was showing continuing decline maximal medical therapy and mental status was dropping. The family decided to pursue hospice care. Patient had previously been in [facility] hospice, however the family we contacted [facility] and then thereafter requested that [facility] be involved in her care family was going to withdraw any further aggressive care was decided the patient would be transitioned to patient hospice care at this time as the patient is requiring great deal of [facility] support. At this time the patient's comfortable and nonresponsive. Past Med Surg Social Fam HX - Past Medical History Medical history: arthritis, atrial fibrillation, CHF (chronic, diastolic), COPD , CVA Psychiatric history: anxiety - Past Surgical History Surgical History: cataract, hysterectomy, orthopedic, other - Social History Smoking Status: Former smoker Smokeless Tobacco Status: No Alcohol use: none Drug use: none - Family History Mother Living Status: Hx Family Cardiac Disorders: Yes Father Living Status: Hx Family Cancer: Yes Brother Hx Family Cardiac Disorders: Yes (CAD, has PPM) Sister Hx Family Cardiac Disorders: Yes (CAD, has PPM) Daughter Living Status: Hx Family Cancer: Yes Internal Medicine - H&P: Meds B2/Vits A,C,E/Lut/Zeaxanth/Min [Icaps Tablet] 1 each PO HS 03/27/15 [History] Cholecalciferol (Vitamin D3) [Vitamin D3] 5,000 unit PO HS 03/27/15 [History] ClonazePAM [Klonopin] 0.5 mg PO HS 03/27/15 [History] Docusate [Colace] 100 mg PO HS 03/27/15 [History] Furosemide [Lasix] 80 mg PO QAM 03/27/15 [History] Insulin NPH Hum/Reg Insulin Hm [Novolin 70-30 100 Unit/ml Vial] 35 unit SQ BID 03/27/15 [History] Losartan [Cozaar] 50 mg PO HS 03/27/15 [History] [place]-3/Dha/Epa/Fish Oil [[place] 3 500 Softgel] 2 cap PO QAM 03/27/15 [History] Omeprazole [PriLOSEC] 40 mg PO QAM 03/27/15 [History] Potassium Chloride [K-Tab ER] 20 meq PO BID 03/27/15 [History] Albuterol Neb [Proventil Neb] 2.5 mg IH Q6H PRN 11/13/15 [History] Albuterol Sulfate [Proair Hfa] 2 puff IH Q4H PRN 11/13/15 [History] Denosumab [Prolia (For Outpatient Infusion)] 60 mg SQ [id number] 11/13/15 [History ] Rivaroxaban [Xarelto] 10 mg PO QAM 11/13/15 [History] Tiotropium [Spiriva] 18 mcg IH DAILY@0700 #30 inh 02/24/16 [Rx] Verapamil ER (24 HR) [Calan SR] 240 mg PO DAILY #30 tablet.er 02/24/16 [Rx] Budesonide/Formoterol 160/4.5 [Symbicort 160/4.5] 2 puff IH BID 03/15/16 [ History] Digoxin [Lanoxin] 0.125 mg PO DAILY 03/15/16 [History] Metoprolol [Lopressor] 100 mg PO BID 03/15/16 [History] Venlafaxine [Effexor] 75 mg PO DAILY 03/15/16 [History] Allergies aminophylline Allergy (Verified 03/15/16 14:43) Anaphylaxis bacitracin Allergy (Verified 03/15/16 14:43) Anaphylaxis Calcium Channel Blocking Agents-Dih Allergy (Verified 03/15/16 14:43) Anaphylaxis cephalexin Allergy (Verified 03/15/16 14:43) Anaphylaxis Cephalosporins Allergy (Verified 03/15/16 14:43) Anaphylaxis Erythromycin Base Allergy (Verified 03/15/16 14:43) Anaphylaxis Macrolide Antibiotics Allergy (Verified 03/15/16 14:43) Anaphylaxis menthol Allergy (Verified 03/15/16 14:43) Anaphylaxis meperidine Allergy (Verified 03/15/16 14:43) Anaphylaxis methyl salicylate Allergy (Verified 03/15/16 14:43) Anaphylaxis morphine Allergy (Verified 03/15/16 14:43) Anaphylaxis nifedipine Allergy (Verified 03/15/16 14:43) Anaphylaxis Penicillins Allergy (Verified 03/15/16 14:43) Anaphylaxis polymyxin B Allergy (Verified 03/15/16 14:43) Anaphylaxis simvastatin Allergy (Verified 03/15/16 14:43) Anaphylaxis Oispswg-Hnt-Fhn Reductase Inhibitor [HMG-Coa Reductase Inhibitors] Allergy ( Verified 03/15/16 14:43) Anaphylaxis Sulfa (Sulfonamide Antibiotics) Allergy (Verified 03/15/16 14:43) Anaphylaxis theophylline Allergy (Verified 03/15/16 14:43) Anaphylaxis Iodinated Contrast Media - Oral and [Iodinated Contrast Media - IV Dye] Adverse Reaction (Verified 03/15/16 14:43) Anaphylaxis ROS unobtainable: due to mental status Palliative Care-Exam - Constitutional General appearance: Present: no acute distress - Head Head Exam: Present: atraumatic, normal inspection - Eye Eye exam: Present: normal appearance - ENT ENT exam: Present: mucous membranes dry - Neck Neck exam: Present: normal inspection - Respiratory Respiratory exam: Present: decreased breath sounds - Cardiovascular Cardiovascular exam: Present: irregular rhythm, tachycardia - GI/Abdominal Exam GI/Abdominal exam: Present: normal bowel sounds, soft. Absent: tenderness - Extremities Exam Extremities exam: Absent: normal inspection (Cool to touch with role discoloration), pedal edema, tenderness - Neurological Exam Neurological exam: Present: altered. Absent: oriented X3 - Psychiatric Psychiatric exam: Absent: agitated, anxious - Skin Skin exam: Present: dry, normal color (His coloration is noted to both lower extremities.), warm (Overall, however her legs are cool to the touch) Palliative Quality Palliative Quality: Screen for Code Status: Yes, Screen for Goals of Care: Yes, Screen for Pain: Yes, If Pain Regimen Started, Initiate Bowel Regimen: Yes, Screen for Nausea/Vomitting: Yes Code Status: 03/19/16 10:10 Resuscitation Status: Active [RES] Routine Comment: Resuscitation Status: DNR-Comfort Care
[2016-03-19] MEDS: *HR* Morphine 2 MG/ML SYRINGE IVP PRN (20:25)
[2016-03-19] MEDS: Lacri-Lube 3.5 GM TUBE BOTH EYES SCH (20:34)
[2016-03-20] MEDS: *HR* Morphine 2 MG/ML SYRINGE IVP PRN ×4 (03:01→17:48)
[2016-03-20] MEDS: Lacri-Lube 3.5 GM TUBE BOTH EYES SCH ×2 (08:51→21:39)
[2016-03-20] MEDS ORDERED: Furosemide 40 MG/4 ML VIAL IVP SCH (09:00)
[2016-03-20] MEDS ORDERED: *HR* Morphine 2 MG/ML SYRINGE IVP PRN (10:19)
--- NOTE | 2016-03-20 10:52 | Palliative Progress Note ---
Date of Encounter: 03/20/16 Time of Encounter: 10:49 - Assessment and plan (1) Dyspnea Current Visit: Yes Status: Acute Assessment and plan: Ms. Méndez is demonstrating signs of increased work of breathing (tachypnea, accessory muscle use, ect.). She is on a 100% NRB mask. Morphine to 2mg every hour as needed with a dose now. She used three doses throughout the night. D/ C continuous pulse ox. Discussed plan of care with family. Main focus is the patient and her presenting symptoms, not the "numbers" from the monitor. Discussed plan of care with primary nurse and attending. Qualifiers: Dyspnea type: shortness of breath Qualified Code(s): R06.02 - Shortness of breath (2) Anxiety Current Visit: Yes Status: Acute Assessment and plan: Ms. Méndez had episodes of increased anxiety throughout the night. Her family reports she responded well to the medicaitons. She had one dose of Haldol and Ativan last night. Will schedule her Ativan at as she had previously taken at home. (3) CHF (congestive heart failure) Current Visit: Yes Status: Acute Assessment and plan: Lasix 40mg IV scheduled daily. Will monitor urine output. May consider stopping the IV lasix if the output drops off. Qualifiers: Congestive heart failure type: diastolic Congestive heart failure chronicity: chronic Qualified Code(s): I50.32 - Chronic diastolic (congestive ) heart failure (4) Goals of care, counseling/discussion Current Visit: Yes Status: Acute Assessment and plan: Ms. Méndez is currently under general in-patient hospice care for symptom management. Discussed plan of care with her family. Given Ms. Méndez's rapid decline in health and physical assessment, she is not expected to survive long, therefore, is not safe for transport out of the hospital. Will continue to adjust medications as necessary. - Time Spent With Patient Total time spent is greater than 50% in coordination of care (as documented) at patient's floor/unit and/or counseling patient: - Subjective Interval history: Ms. Méndez is lying in bed with family at bedside. She is unresponsive, but was awake for short periods throughout the night. Ms. Méndez's daughter reports a restless night, but the patient did "settle down" after medications. - Constitutional Vitals: Apical heart rate 170 SpO2 98 % on 100% NRB General appearance: Present: mild distress (accessory muscle use noted with breathing) - ENT ENT exam: Present: mucous membranes moist - Respiratory Respiratory exam: Present: accessory muscle use, rales, respiratory distress, tachypnea - Cardiovascular Cardiovascular exam: Present: irregular rhythm, tachycardia (apical rate 170) - GI/Abdominal GI/Abdominal exam: Present: soft. Absent: guarding - Additional comments: heredia catheter intact with dark yellow urine - Extremities Exam Extremities exam: Absent: normal inspection (toes and plantar surface of bilateral feet with purple discoloration, bilateral feet cool) - Expanded Lower Extremity Exam Foot/Toe exam: Absent: normal inspection Bottom foot image: 1 - purple/blue discoloration 2 - purple/blue discoloration - Neurological Exam Neurological exam: Absent: alert - Psychiatric Psychiatric exam: Absent: agitated, anxious - Skin Skin exam: Absent: normal color (purple/blue discoloration to bilateral feet- plantar surface), warm (bilateral feet cool to touch) Palliative Quality Palliative Quality: Screen for Code Status: Yes, Screen for Goals of Care: Yes, Screen for Pain: Yes, If Pain Regimen Started, Initiate Bowel Regimen: Yes, Screen for Nausea/Vomitting: Yes Code Status: 03/19/16 10:10 Resuscitation Status: Active [RES] Routine Comment: Resuscitation Status: DNR-Comfort Care Consult Discharge Plan - Plan Referrals: Kael Chanel DO [Primary Care Provider] -
[2016-03-20] MEDS ORDERED: Albuterol 2.5 MG/3 ML NEBULIZER IH PRN (15:25)
[2016-03-20] MEDS ORDERED: Acetaminophen 650 MG RECTAL SUPP RC PRN (15:25)
[2016-03-20] MEDS ORDERED: Bisacodyl 10 MG RECTAL SUPPOSITORY RC PRN (15:25)
[2016-03-20] MEDS ORDERED: Ipratropium/Albuterol Neb 3 ML IH PRN (15:25)
[2016-03-20] MEDS ORDERED: Atropine Sulfate 1% 40 DROP/2 ML BOTTLE SL PRN (15:25)
[2016-03-20] MEDS ORDERED: Ondansetron 4 MG/2 ML VIAL IVP PRN (15:25)
[2016-03-20] MEDS ORDERED: Haloperidol Lactate 5 MG/ML VIAL IVP PRN (15:25)
[2016-03-20] MEDS ORDERED: *HR* LORazepam 2 MG/ML VIAL IVP SCH ×2 (21:00)
[2016-03-21] MEDS: *HR* Morphine 2 MG/ML SYRINGE IVP PRN ×3 (03:59→13:18)
[2016-03-21 08:25] VITALS: BP 197/85
[2016-03-21] MEDS ORDERED: Furosemide 40 MG/4 ML VIAL IVP SCH (09:00)
[2016-03-21] MEDS: *HR* LORazepam 2 MG/ML VIAL IVP PRN ×2 (09:05→11:53)
[2016-03-21] MEDS: Lacri-Lube 3.5 GM TUBE BOTH EYES SCH ×2 (09:06→21:18)
--- NOTE | 2016-03-21 10:50 | Palliative Progress Note ---
Date of Encounter: 03/21/16 Time of Encounter: 10:48 - Assessment and plan (1) Dyspnea Current Visit: Yes Status: Acute Assessment and plan: Ms. Méndez continues to be tachypneic. Her accessory muscle use has improved, but this may be due to fatigue. Will schedule morphine 2mg IV morelia 6 hours as a basal dose. Continue with PRN dosing for breakthrough pain or dyspnea. Qualifiers: Dyspnea type: shortness of breath Qualified Code(s): R06.02 - Shortness of breath (2) Anxiety Current Visit: Yes Status: Acute Assessment and plan: Ms. Méndez had episodes of increased anxiety throughout the night despite scheduled lorazepam. Discussed giving additional doses as needed, or alternating with haloperidol. (3) CHF (congestive heart failure) Current Visit: Yes Status: Acute Assessment and plan: Lasix 40mg IV scheduled daily. Urine output 2.3L yesterday. Discontinue scheduled lasix and continue to monitor and add PRN doses if needed. Qualifiers: Congestive heart failure type: diastolic Congestive heart failure chronicity: chronic Qualified Code(s): I50.32 - Chronic diastolic (congestive ) heart failure (4) Goals of care, counseling/discussion Current Visit: Yes Status: Acute Assessment and plan: Ms. Méndez is currently under general in-patient hospice care for symptom management. Discussed plan of care with her family. Given Ms. Méndez's rapid decline in health and physical assessment (continued tachycardia, terminal fever , tachypnea, restlessness), she is not expected to survive long, therefore, is not safe for transport out of the hospital. Will continue to adjust medications as necessary. - Time Spent With Patient Total time spent is greater than 50% in coordination of care (as documented) at patient's floor/unit and/or counseling patient: - Subjective Interval history: Ms. Méndez is lying in bed with family at bedside. She is unresponsive, but was awake for short periods throughout the night. Ms. Méndez's daughter reports a restless night despite the lorazepam. Her heart rate has been elevated and respiratory rate has been 30. - Constitutional General appearance: Present: no acute distress Exam: 86 year old female, unresponsive, tachypneic and tachycardic - ENT ENT exam: Present: mucous membranes moist - Respiratory Respiratory exam: Present: decreased breath sounds, tachypnea (respiratory rate 32) - Cardiovascular Cardiovascular exam: Present: irregular rhythm, tachycardia - GI/Abdominal GI/Abdominal exam: Present: normal bowel sounds, soft. Absent: guarding, tenderness - Additional comments: heredia catheter intact with 2.3L urine output yesterday. - Extremities Exam Extremities exam: Absent: normal inspection (bilateral feet with purple discoloration, cool) - Neurological Exam Neurological exam: Absent: alert - Psychiatric Psychiatric exam: Absent: agitated, anxious - Skin Skin exam: Present: diaphoretic, warm Palliative Quality Palliative Quality: Screen for Code Status: Yes, Screen for Goals of Care: Yes, Screen for Pain: Yes, If Pain Regimen Started, Initiate Bowel Regimen: Yes, Screen for Nausea/Vomitting: Yes Code Status: 03/19/16 10:10 Resuscitation Status: Active [RES] Routine Comment: Resuscitation Status: DNR-Comfort Care Consult Discharge Plan - Plan Referrals: Kael Chanel DO [Primary Care Provider] -
[2016-03-21] MEDS: *HR* Morphine 2 MG/ML SYRINGE IVP SCH ×2 (11:54→17:28)
[2016-03-21] MEDS ORDERED: Haloperidol Oral Conc 10 MG/5 ML UDC PO PRN (14:23)
[2016-03-21] MEDS ORDERED: *HR* LORazepam Oral Conc 2 MG/ML SL PRN (14:23)
[2016-03-21] MEDS: Morphine Oral CONC 5 MG/0.25 ML ORAL.SYG PO PRN ×3 (17:28→21:17)
[2016-03-21] MEDS ORDERED: Morphine Oral CONC 5 MG/0.25 ML ORAL.SYG PO SCH (18:00)
[2016-03-21] MEDS ORDERED: *HR* LORazepam Oral Conc 2 MG/ML SL SCH (21:00)
--- NOTE | 2016-03-22 15:45 | Death Note ---
Discharge Sum: Summary - Date and Time Date of admission: 03/19/16 13:17 Date of : 03/21/16 Time of : 21:50 - Summary Details: Ms. Méndez is an 86-year-old female patient admitted to general inpatient hospice for intense symptom management. Her terminal diagnosis was congestive heart failure and atrial fibrillation with rapid ventricular rate. Ms. Méndez had been hospitalized prior for management of congestive heart failure and atrial fibrillation with rapid ventricular rate. She was found to have a significantly elevated white blood cell count, and was treated with antibiotic therapy. Despite medical intervention, her health declined. She was transitioned to DNR comfort care, and admitted to hospice care on 03/19/2016. She remained in the hospital under general inpatient hospice care for intense symptom management related to her shortness of breath. Her health rapidly declined and it was felt to be unsafe to transition her out of the hospital. She remained on the palliative care unit receiving intense symptom management. Her family remained at bedside throughout her hospitalization. On 03/21/2016, her family notified staff of a change in condition. She was found to be without signs of life at 2150, including absence of respirations, apical heart tones, blood pressure, pupils fixed and dilated. Dr. Starks was notified, as well as the palliative care provider on-call, and the hospice nurse. - Additional Data Confirmation of as documented by pronouncing clinician: no pulse, no respirations, no heart sounds, pupils fixed and dilated Family: at bedside Attending/PCP notified?: Yes Attending physician: Akash Cabrera MD Was code activated?: No Autopsy requested?: No voucher examiner notified?: No Organ bank notified?: Yes Advance directives: Yes Hospice patient?: Yes Discharge Sum: Diag - PCOD Probable Cause of : Respiratory arrest Discharge Sum: Prov - Provider Primary care physician: Kael Chanel DO Admitting clinician: Akash Cabrera Attending physician on admission: Akash Cabrera Consults: 03/19/16 10:10 Consult to Palliative Care [CONS] Routine Comment: Consulting Provider: Palliative Care Vivian Pronouncing clinician: Stefano Starks
== END 2016-03-21 21:50 | disposition expired | DRG 872 ==
LOC: 2NENU 13:17 → 2ANU 03-20 15:04
PROVIDERS: ADMIT Nurse Practitioner Adult Health; ATTEND Family Medicine Hospice and Palliative Medicine